=== PATIENT | female | born 1955 | race Caucasian/White ===

== ENCOUNTER → 2017-02-09 | Outpatient (CLI) | payer BC ==
[2017-02-09 07:58] LABS: Basophils # (A) 0.1 k/uL (0-0.2); Basophils % (A) 1 %; CH 29.6; CHCM 32.4; Eosinophils # (A) 0.2 k/uL (0-0.7); Eosinophils % (A) 4 %; HCT 41.4 % (34.0-46.0); HDW 2.44; HGB 13.2 gm/dL (11.4-16.0); Luc # (Auto) 0.17; Luc % (Auto) 4; Lymphocytes # (A) 1.4 k/uL (1.0-4.8); Lymphocytes % (A) 30 %; MCH 29.2 pg (25.0-35.0); MCHC 31.8 g/dL (31.0-37.0); MCV 91.9 fL (80.0-100.0); Mean Platelet Volume 7.5; Monocytes # (A) 0.3 k/uL (0-1.0); Monocytes % (A) 7 %; Neutrophils # (A) 2.4 k/uL (1.3-7.7); Neutrophils % (A) 54 %; RDW 14.4 % (11.5-15.5); WBC 4.5 k/uL (3.8-10.6); WBC (Perox) 4.81
[2017-02-09 08:04] LABS: Appearance,Urine Clear (Clear); Bilirubin,Urine Negative (Negative); Glucose,Urine (UA) Negative (Negative); Ketones,Urine Negative (Negative); Leukocyte Esterase,Urine Moderate (Negative); Mucus,Urine Few /hpf; Nitrite,Urine Negative (Negative); PH, Urine 5.5 (5.0-8.0); Particle Count 3296; Protein,Urine Negative (Negative); RBC,Urine 1 /hpf (0-5); Specific Gravity,Urine 1.011 (1.001-1.035); UA Billing (MACRO vs. MICRO) MICRO; Urobilinogen,Urine <2.0 mg/dL (<2.0); WBC,Urine 7 /hpf (0-5)
[2017-02-09 08:43] LABS: ALT 31 U/L (9-52); AST 29 U/L (14-36); Alkaline Phosphatase 110 U/L (38-126); Anion Gap 13 mmol/L; Blood Urea Nitrogen 14 mg/dL (7-17); Calcium 9.3 mg/dL (8.4-10.2); Carbon Dioxide 25 mmol/L (22-30); Chloride 104 mmol/L (98-107); Cholesterol 131 mg/dL (<200); Creatine Kinase 58 U/L (30-135); Glucose 86 mg/dL (74-99); HDL Cholesterol 50 mg/dL (40-60); Magnesium 2.1 mg/dL (1.6-2.3); Non-African American GFR(MDRD) >60 (>60 ml/min/1.73 sqM); Potassium 4.1 mmol/L (3.5-5.1); Sodium 142 mmol/L (137-145); Total Bilirubin 0.4 mg/dL (0.2-1.3); Total Protein 8.1 g/dL (6.3-8.2); Uric Acid 3.9 mg/dL (3.7-7.4)
== END | disposition home or self-care (01) ==
LOC: LABWHC1 07:12
PROVIDERS: ATTEND Internal Medicine
DX: E78.5 Hyperlipidemia, unspecified (principal); I10 Essential (primary) hypertension; M81.0 Age-related osteoporosis without current pathological fracture
CPT/HCPCS: 36415; 80053; 80061; 81001; 82306; 82550; 83036; 83735; 84439; 84443; 84550; 85025

== ENCOUNTER → 2017-02-13 | Outpatient (CLI) | payer BC ==
--- NOTE | 2017-02-15 06:21 | ECHOF ---
Referral Reason:I49.9 Cardiac arrhythmia, unspecified MEASUREMENTS -------- HEIGHT: 167.6 cm WEIGHT: 55.3 kg BP: 137/81 RVIDd: 2.2 cm (< 3.3) IVSd: 1.3 cm (0.6 - 1.1) LVIDd: 3.7 cm (3.9 - 5.3) LVPWd: 1.1 cm (0.6 - 1.1) IVSs: 1.5 cm LVIDs: 2.7 cm LVPWs: 1.2 cm LAESV Index (A-L): 18.59 ml/m Ao Diam: 3.0 cm (2.0 - 3.7) AV Cusp: 1.1 cm (1.5 - 2.6) LA Diam: 2.1 cm (2.7 - 3.8) MV EXCURSION: 21.996 mm (> 18.000) MV EF SLOPE: 149 mm/s (70 - 150) EPSS: 0.8 cm MV E Anuj: 0.48 m/s MV DecT: 332 ms MV A Anuj: 0.62 m/s MV E/A Ratio: 0.77 RAP: 5.00 mmHg RVSP: 21.76 mmHg FINDINGS -------- Sinus rhythm. This was a technically adequate study. The left ventricular size is normal. There is borderline concentric left ventricular hypertrophy. Overall left ventricular systolic function is normal with, an EF between 55 - 60 %. The right ventricle is normal in size and function. Normal LA size by volume 22+/-6 ml/m2. The right atrium is normal in size. The aortic valve is trileaflet, and appears structurally normal. No aortic stenosis or regurgitation. The mitral valve leaflets are mildly thickened. There is trace mitral regurgitation. Trace tricuspid regurgitation present. Right ventricular systolic pressure is normal at < 35 mmHg. There is no evidence of pulmonary hypertension. The pulmonic valve was not well visualized. The aortic root size is normal. Normal inferior vena cava with normal inspiratory collapse consistent with estimated right atrial pressure of 5 mmHg. The pericardium is normal. There is no pericardial effusion. CONCLUSIONS -------- 1. Sinus rhythm. 2. Right ventricular systolic pressure is normal at < 35 mmHg. 3. There is no evidence of pulmonary hypertension. 4. The pulmonic valve was not well visualized. 5. The aortic root size is normal. 6. This was a technically adequate study. 7. The left ventricular size is normal. 8. Overall left ventricular systolic function is normal with, an EF between 55 - 60 %. 9. Normal LA size by volume 22+/-6 ml/m2. 10. The aortic valve is trileaflet, and appears structurally normal. No aortic stenosis or regurgitation. 11. The mitral valve leaflets are mildly thickened. 12. There is trace mitral regurgitation. 13. Trace tricuspid regurgitation present. [employer] PERSON: Issac Barker RDCS
== END | disposition home or self-care (01) ==
LOC: RADECHMAIN 15:23
PROVIDERS: ATTEND Internal Medicine
DX: I05.9 Rheumatic mitral valve disease, unspecified (principal)
CPT/HCPCS: 93306

== ENCOUNTER → 2017-04-09 | Outpatient (CLI) | payer BC ==
--- NOTE | 2017-04-09 12:01 | BD ---
EXAMINATION TYPE: MG DEXA axial skeleton. DATE OF EXAM: 04/09/2017 COMPARISON: NONE CLINICAL HISTORY: Age related osteoporosis M81.0 Height: 5 FT 5 IN Weight: 120 FRAX RISK QUESTIONS: Alcohol (3 or more units per day): NO Family History (Parent hip fracture): NO Glucocorticoids (More than 3mos): NO (Ex: prednisone, prednisolone, methylprednisolone, dexamethasone, and hydrocortisone). History of Fracture in Adulthood: NO Secondary Osteoporosis: 1. Type 1 Diabetes: NO 2. Hyperthyroidism: NO 3. Menopause before 45: YES 4. Malnutrition: NO 5. Chronic liver disease: NO Rheumatoid Arthritis: NO Current Tobacco Use: NO RISK FACTORS HISTORY OF: Family History of Osteoporosis: YES Active: YES Postmenopausal woman: AGE 43 MEDICATIONS: Additional Medications: LISINOPRIL, ATORVASTIN, BUPROPIN, XANAX Additional History: BREAST CANCER 2013 CHEMO EXAM MEASUREMENTS: Bone mineral densitometry was performed using the [employer] System. Bone mineral density as measured about the Lumbar spine is: ----- L1-L4(G/cm2): 0.608 T Score Values are as follows: ----- L2: -5.3 ----- L3: -4.7 ----- L4: -5.0 ----- L1-L4: -4.8 BASELINE Bone mineral density about the R hip (g/cm2): 0.624 Bone mineral density about the L hip (g/cm2): 0.585 T Score values are as follows: -----R Neck: -3.0 -----L Neck: -3.3 -----R Total: -3.3 -----L Total: -3.4 BASELINE IMPRESSION: Findings compatible with osteoporosis. As such there is high fracture risk. NOTE: T-SCORE=SD OF THE YOUNG ADULT MEAN.
== END | disposition home or self-care (01) ==
LOC: RADBDWWP 07:58
PROVIDERS: ATTEND Internal Medicine
DX: M81.0 Age-related osteoporosis without current pathological fracture (principal)
CPT/HCPCS: 77080

== ENCOUNTER → 2017-09-18 | Outpatient (CLI) | payer BC ==
[2017-09-18 07:51] LABS: Basophils # (A) 0.1 k/uL (0-0.2); Basophils % (A) 1 %; Eosinophils # (A) 0.2 k/uL (0-0.7); Eosinophils % (A) 3 %; HGB 12.4 gm/dL (11.4-16.0); Lymphocytes # (A) 1.6 k/uL (1.0-4.8); Lymphocytes % (A) 32 %; MCH 28.1 pg (25.0-35.0); MCV 90.5 fL (80.0-100.0); Mean Platelet Volume 7.9; Monocytes # (A) 0.4 k/uL (0-1.0); Monocytes % (A) 7 %; Neutrophils # (A) 2.8 k/uL (1.3-7.7); Neutrophils % (A) 55 %; Platelet Count 265 k/uL (150-450); RBC 4.42 m/uL (3.80-5.40); RDW 13.8 % (11.5-15.5); WBC 5.1 k/uL (3.8-10.6)
[2017-09-18 08:23] LABS: ALT 33 U/L (9-52); AST 32 U/L (14-36); Albumin 4.3 g/dL (3.5-5.0); Alkaline Phosphatase 87 U/L (38-126); Anion Gap 13 mmol/L; Blood Urea Nitrogen 18 mg/dL (7-17); Calcium 9.8 mg/dL (8.4-10.2); Carbon Dioxide 27 mmol/L (22-30); Chloride 104 mmol/L (98-107); Cholesterol 146 mg/dL (<200); Creatine Kinase 65 U/L (30-135); Glucose 95 mg/dL (74-99); HDL Cholesterol 44 mg/dL (40-60); LDL Cholesterol,Calculated 89 mg/dL (0-99); Potassium 5.1 mmol/L (3.5-5.1); Sodium 144 mmol/L (137-145); T4, Free (Free Thyroxine) 1.09 ng/dL (0.78-2.19); Total Bilirubin 0.3 mg/dL (0.2-1.3); Total Protein 8.2 g/dL (6.3-8.2); Triglycerides 64 mg/dL (<150)
[2017-09-18 13:55] LABS: Hemoglobin A1C 5.9 % (4.0-6.0)
== END | disposition home or self-care (01) ==
LOC: LABWHC1 07:09
PROVIDERS: ATTEND Internal Medicine
DX: I10 Essential (primary) hypertension (principal); E78.5 Hyperlipidemia, unspecified; M81.0 Age-related osteoporosis without current pathological fracture
CPT/HCPCS: 36415; 80053; 80061; 82306; 82550; 83036; 83735; 84439; 84443; 85025

== ENCOUNTER → 2018-04-23 | Outpatient (CLI) | payer BC ==
--- NOTE | 2018-04-23 11:34 | MM ---
Reason for exam: additional evaluation requested from prior study. Last mammogram was performed 1 year ago. History: Patient is postmenopausal, has history of breast cancer at age 57, and history of other cancer. Family history of breast cancer in maternal aunt at age 60. Malignant right mammotome panel of the right breast, September 19, 2013. Malignant US RT VAD breast biopsy of the right breast, September 19, 2013. Implant in the left breast, 2013. Mastectomy of the right breast, 2013. Chemotherapy, 2013. Physical Findings: Nurse did not find any significant physical abnormalities on exam. MG 3D Diag Mammo Imp W/Cad LT CC, MLO, and XCCL view(s) were taken of the left breast. Prior study comparison: April 09, 2017, left breast MG 3d diag mammo imp w/cad LT. December 23, 2015, left breast MG 3d diag mammo imp w/cad LT. The breast tissue is extremely dense which could obscure a lesion on mammography. No suspicious abnormality. Stable central outer focal asymmetry back to 2016 on 3D views. These results were verbally communicated with the patient and result sheet given to the patient on 04/23/18. ASSESSMENT: Benign, BI-RAD 2 RECOMMENDATION: Follow-up diagnostic mammogram of the left breast in 1 year. (Supplemental screening MRI is recommended in this BRCA positive patient)
== END | disposition home or self-care (01) ==
LOC: RADMAMWWP 09:31
PROVIDERS: ATTEND Internal Medicine Hematology & Oncology
DX: Z08 Encounter for follow-up examination after completed treatment for malignant neoplasm (principal); Z85.3 Personal history of malignant neoplasm of breast
CPT/HCPCS: 77061; 77065

== ENCOUNTER → 2018-10-16 | Outpatient (CLI) | payer BC ==
--- NOTE | 2018-10-16 14:44 | BMR ---
EXAMINATION TYPE: MR breast LT wo/w con DATE OF EXAM: 10/16/2018 COMPARISON: Three-D left breast mammogram April 23, 2018 BI-RADS 2. HISTORY: Right-sided breast cancer treated with mastectomy 2013 with dense breasts on mammogram. Hist ory of left breast implant CONTRAST: Multiplanar, multisequence images of the breasts were acquired utilizing 5.5 mL intravenous Gadavist gadolinium contrast. TECHNIQUE: A series of fat and water weighted images in the long and short axis views of both breasts are obtained in conjunction with dynamic contrast MRI with subtraction technique. Three-dimensional and additional postprocessing imaging is created on independent workstation and reviewed during offi cial interpretation of this study. FINDINGS: Incidental 11 mm T2 hyperintense nonenhancing right lung nodule axial image 26. This correl ates with 2014 CT nodule stable. Nodule is presumed benign. Right breast is surgically absent. There is right breast subpectoral silicone implant in place. Left breast is smaller caliber subpectoral silicone implant. There is extremely dense fibroglandular tissue anterior to the implant. Dynamic postcontrast images show mild background enhancement. A few p rominent vessels in the left breast are present. No pathologic enhancement is seen. T2-weighted image s show no significant cysts. No suspicious fat containing lesions on T1-weighted images. Few benign-a ppearing left axillary lymph nodes. No suspicious greater than 1 cm axillary adenopathy. Chest wall i s intact bilaterally. IMPRESSION: No MRI evidence for invasive malignancy in either breast. BI-RADS 2 benign findings right breast BI-RADS 2 benign findings left breast. Recommendation: Patient is due for left breast mammogram April 23, 2019 to be back on annual sched ule.
== END | disposition home or self-care (01) ==
LOC: RADMRIMAIN 13:05
PROVIDERS: ATTEND Internal Medicine
DX: R92.2 Inconclusive mammogram (principal)
CPT/HCPCS: 77048; C8937; A9585

== ENCOUNTER → 2019-01-31 | Outpatient (CLI) | payer BC ==
[2019-01-31 08:31] LABS: Basophils # (A) 0.1 k/uL (0-0.2); Basophils % (A) 2 %; Eosinophils # (A) 0.2 k/uL (0-0.7); Eosinophils % (A) 4 %; HCT 40.6 % (34.0-46.0); HGB 12.5 gm/dL (11.4-16.0); Lymphocytes # (A) 1.5 k/uL (1.0-4.8); Lymphocytes % (A) 28 %; MCH 28.7 pg (25.0-35.0); MCHC 30.8 g/dL (31.0-37.0); MCV 93.3 fL (80.0-100.0); Mean Platelet Volume 7.2; Monocytes # (A) 0.5 k/uL (0-1.0); Monocytes % (A) 9 %; Neutrophils # (A) 2.9 k/uL (1.3-7.7); Neutrophils % (A) 54 %; Platelet Count 259 k/uL (150-450); RBC 4.35 m/uL (3.80-5.40); RDW 14.3 % (11.5-15.5); WBC 5.4 k/uL (3.8-10.6)
[2019-01-31 08:44] LABS: Appearance,Urine Clear (Clear); Bilirubin,Urine Negative (Negative); Blood,Urine Negative (Negative); Color,Urine Yellow; Glucose,Urine (UA) Negative (Negative); Ketones,Urine Negative (Negative); Leukocyte Esterase,Urine Small (Negative); Mucus,Urine Moderate /hpf; Nitrite,Urine Negative (Negative); PH, Urine 5.5 (5.0-8.0); Protein,Urine Negative (Negative); RBC,Urine 1 /hpf (0-5); Specific Gravity,Urine 1.021 (1.001-1.035); Squamous Epithelial Cell,Urine <1 /hpf (0-4); Urobilinogen,Urine <2.0 mg/dL (<2.0); WBC,Urine 1 /hpf (0-5)
[2019-01-31 11:51] LABS: Albumin 4.3 g/dL (3.80-4.90); Albumin/Globulin Ratio 1.48 (1.60-3.17); Anion Gap 7.7 mmol/L (4.00-12.00); BUN/Creat Ratio 24.44 Ratio (12.00-20.00); Calcium 9.3 mg/dL (8.7-10.3); Carbon Dioxide 24.3 mmol/L (21.6-31.8); Chol/HDL Ratio 3.23; Globulin 2.9 g/dL (1.6-3.3); LDL Cholesterol,Calculated 76.2 mg/dL (0.0-131.0); Magnesium 1.8 mg/dL (1.5-2.4); Potassium 4.6 mmol/L (3.5-5.5); Total Bilirubin 0.2 mg/dL (0.3-1.2); Total Protein 7.2 g/dL (6.2-8.2); Uric Acid 4.9 mg/dL (2.9-7.7); VLDL Calculation 10.8 mg/dL (5.00-40.00)
[2019-01-31 12:00] LABS: T4, Free (Free Thyroxine) 1.1 ng/dL (0.80-1.80)
[2019-01-31 12:51] LABS: Hemoglobin A1C 5.8 % (4.0-6.0)
== END | disposition home or self-care (01) ==
LOC: LABWHC1 07:02
PROVIDERS: ATTEND Internal Medicine
DX: I10 Essential (primary) hypertension (principal); E78.5 Hyperlipidemia, unspecified; M81.0 Age-related osteoporosis without current pathological fracture
CPT/HCPCS: 36415; 80053; 80061; 81001; 82306; 82550; 83036; 83735; 84439; 84443; 84550; 85025

== ENCOUNTER 2019-05-07 18:22 | Emergency (ER) | payer BC ==
[2019-05-07 18:34] VITALS: TEMP 98
[2019-05-07 19:22] LABS: Basophils % (A) 1 %; Eosinophils # (A) 0.2 k/uL (0-0.7); Eosinophils % (A) 2 %; HCT 40.1 % (34.0-46.0); HGB 12.9 gm/dL (11.4-16.0); Lymphocytes # (A) 1.4 k/uL (1.0-4.8); Lymphocytes % (A) 16 %; MCH 28.9 pg (25.0-35.0); MCHC 32.2 g/dL (31.0-37.0); MCV 89.8 fL (80.0-100.0); Mean Platelet Volume 6.6; Monocytes # (A) 0.4 k/uL (0-1.0); Monocytes % (A) 5 %; Neutrophils # (A) 6.5 k/uL (1.3-7.7); Neutrophils % (A) 74 %; Platelet Count 358 k/uL (150-450); RBC 4.47 m/uL (3.80-5.40); WBC 8.8 k/uL (3.8-10.6)
[2019-05-07 19:31] LABS: ALT 33 U/L (9-52); AST 37 U/L (14-36); African American GFR (CKD) >90 (>60 ml/min/1.73 sqM); Albumin 4.5 g/dL (3.5-5.0); Alkaline Phosphatase 114 U/L (38-126); Anion Gap 13 mmol/L; Blood Urea Nitrogen 20 mg/dL (7-17); Calcium 9.3 mg/dL (8.4-10.2); Carbon Dioxide 20 mmol/L (22-30); Chloride 109 mmol/L (98-107); Creatine Kinase 74 U/L (30-135); Glucose 108 mg/dL (74-99); Non-African American GFR(CKD) >90 (>60 ml/min/1.73 sqM); Potassium 4.3 mmol/L (3.5-5.1); Sodium 142 mmol/L (137-145); Total Bilirubin 0.4 mg/dL (0.2-1.3); Total Protein 8.5 g/dL (6.3-8.2)
[2019-05-07 19:36] LABS: Partial Thromboplastin Time 24.9 sec (22.0-30.0); Prothrombin Time 10.5 sec (9.0-12.0)
--- NOTE | 2019-05-07 20:22 | CT ---
EXAMINATION TYPE: CT angio chest DATE OF EXAM: 05/07/2019 COMPARISON: CTA chest March 17, 2014. HISTORY: Elevated d-dimer and back pain. CT DLP: 195.8 mGycm. Automated Exposure Control for Dose Reduction was Utilized. CONTRAST: CTA scan of the thorax is performed with IV Contrast, patient injected with 100 mL of Isovue 370, pul monary embolism protocol. MIP Images are created on CT scanner and reviewed. FINDINGS: LUNGS: The lungs are grossly clear, there is no concerning new parenchymal mass or nodule identified. There is stable right middle lobe low dense nodule with focus of calcification axial image 82 measu ring 13 x 11 mm not significantly changed from 2014 and is thus benign. There is no pleural effusion or pneumothorax seen. The tracheobronchial tree is patent. MEDIASTINUM: There is satisfactory enhancement of the pulmonary artery and its branches, there is no CT evidence for pulmonary embolism. There are no greater than 1 cm hilar or mediastinal lymph nodes. No cardiomegaly or pericardial effusion is seen. OTHER: Slight scoliotic curvature. IMPRESSION: No CT evidence for acute pulmonary embolism. No suspicious acute pulmonary process.
[2019-05-07 20:30] LABS: D-Dimer 1.19 mg/L FEU (<0.60)
[2019-05-07] MEDS ORDERED: KETOROLAC 30 MG/ML 1 ML VIAL IVP STA (20:40)
[2019-05-07] MEDS ORDERED: SODIUM CHLORIDE 0.9% 500 ML 500 ML IV STA (21:00)
--- NOTE | 2019-05-07 21:04 | ED ---
Back Pain HPI - General Chief Complaint: Back Pain/Injury Stated Complaint: Back spasms Time Seen by Provider: 05/07/19 18:30 Source: patient Limitations: no limitations - History of Present Illness Initial Comments: This is a 63-year-old female history of breast cancer and prior history of PE in the left side was sent in by her doctor today because of persistent pain in her back and about the bra strap line. Pain is somewhat sharp and somewhat dull at times get worse with movement or deep breathing he doesn't have a elevated d- dimer on palpation lab work the concern was for PE recurrence. She denies any fevers chills nausea vomiting sweats or other symptoms no trauma. MD Complaint: back pain - Related Data Home Medications Medication Instructions Recorded Confirmed ALPRAZolam [Xanax] 0.25 mg PO BID PRN 03/17/14 02/15/16 buPROPion XL [Wellbutrin XL] 150 mg PO DAILY 03/17/14 02/15/16 Lisinopril [Zestril] 5 mg PO HS 07/01/14 02/17/16 Atorvastatin [Lipitor] 20 mg PO DAILY 02/16/16 02/16/16 Previous Rx's Medication Instructions Recorded Clindamycin HCl [Cleocin] 300 mg PO Q12H #20 cap 02/17/16 Hydrocodone/Acetaminophen [[place] 1 - 2 each PO Q6HR PRN #40 tab 02/17/16 5-325] Ketorolac [Toradol] 10 mg PO Q6HR #20 tab 05/07/19 Allergies Allergy/AdvReac Type Severity Reaction Status Date / Time erythromycin base Allergy Anaphylaxis Verified 05/07/19 18:29 [Erythromycin Base] Review of Systems ROS Statement: Those systems with pertinent positive or pertinent negative responses have been documented in the HPI. ROS Other: All systems not noted in ROS Statement are negative. Past Medical History Past Medical History: Cancer, Deep Vein Thrombosis (DVT), Hyperlipidemia, Hypertension Additional Past Medical History / Comment(s): hx. migraines, hx. blood clot left subclavian & left internal jugular due to mediport, finished chemo 2013, decreased ejection fraction due to chemo but has since improved History of Any Multi-Drug Resistant Organisms: None Reported Past Surgical History: Breast Surgery, Tubal Ligation Additional Past Surgical History / Comment(s): Right mastectomy w/reconstruction, Mediport insertion then removal Past Anesthesia/Blood Transfusion Reactions: No Reported Reaction Past Psychological History: Anxiety Smoking Status: Former smoker Past Alcohol Use History: Occasional Past Drug Use History: None Reported - Past Family History Father Family Medical History: AFIB, Chest Pain / Angina, COPD, Coronary Artery Disease (CAD), Hyperlipidemia, Hypertension Additional Family Medical History / Comment(s): HAD OPEN HEART HX STENT ON BLOOD THINNERS, HIATAL HERNIA, MANY BACK SX, PAST AT AGE 81 Mother Family Medical History: Asthma, Hypertension Mother Brother(s) Family Medical History: Cancer General Exam - General Exam Comments Initial Comments: This is a well-developed well-nourished awake alert oriented 3 female Limitations: no limitations General appearance: alert, in no apparent distress Head exam: Present: atraumatic, normocephalic, normal inspection Eye exam: Present: normal appearance, PERRL, EOMI. Absent: scleral icterus, con junctival injection, periorbital swelling ENT exam: Present: mucous membranes dry Neck exam: Present: normal inspection. Absent: tenderness, meningismus, lymphadenopathy Respiratory exam: Present: normal lung sounds bilaterally, chest wall tenderness (Posterior chest wall on the right more so than the left no step-off or c repitation). Absent: respiratory distress, wheezes, rales, rhonchi, stridor Cardiovascular Exam: Present: regular rate, normal rhythm, normal heart sounds. Absent: systolic murmur, diastolic murmur, rubs, gallop, clicks GI/Abdominal exam: Present: soft, normal bowel sounds. Absent: distended, tenderness, guarding, rebound, rigid Extremities exam: Present: normal inspection, full ROM, normal capillary refill. Absent: tenderness, pedal edema, joint swelling, calf tenderness Back exam: Present: normal inspection Neurological exam: Present: alert, oriented X3, CN II-XII intact Psychiatric exam: Present: normal affect, normal mood Skin exam: Present: warm, dry, intact, normal color. Absent: rash Course Vital Signs 05/07/19 05/07/19 05/07/19 18:30 19:31 20:30 Temperature 98 F Pulse Rate 104 H 94 Respiratory 18 21 Rate Blood Pressure 139/88 133/88 O2 Sat by Pulse 97 99 96 Oximetry 05/07/19 21:00 Temperature Pulse Rate 99 Respiratory 20 Rate Blood Pressure 144/93 O2 Sat by Pulse 95 Oximetry Medical Decision Making - Medical Decision Making I did reevaluate patient several occasions she was getting improvement in her pain with IV Toradol. After long discussions she will be discharged she will get a prescription for Toradol she is keep her follow-up with her doctor return when necessary discuss this with her and her daughter. - Lab Data Result diagrams: 05/07/19 19:15 05/07/19 19:15 Lab Results 05/07/19 05/07/19 05/07/19 Range/Units 19:15 19:15 19:15 WBC 8.8 (3.8-10.6) k/uL RBC 4.47 (3.80-5.40) m/uL Hgb 12.9 (11.4-16.0) gm/dL Hct 40.1 (34.0-46.0) % MCV 89.8 (80.0-100.0) fL MCH 28.9 (25.0-35.0) pg MCHC 32.2 (31.0-37.0) g/dL RDW 14.0 (11.5-15.5) % Plt Count 358 (150-450) k/uL Neutrophils % 74 % Lymphocytes % 16 % Monocytes % 5 % Eosinophils % 2 % Basophils % 1 % Neutrophils # 6.5 (1.3-7.7) k/uL Lymphocytes # 1.4 (1.0-4.8) k/uL Monocytes # 0.4 (0-1.0) k/uL Eosinophils # 0.2 (0-0.7) k/uL Basophils # 0.0 (0-0.2) k/uL PT 10.5 (9.0-12.0) sec INR 1.0 (<1.2) APTT 24.9 (22.0-30.0) sec D-Dimer 1.19 H (<0.60) mg/L FEU Sodium 142 (137-145) mmol/L Potassium 4.3 (3.5-5.1) mmol/L Chloride 109 H (98-107) mmol/L Carbon Dioxide 20 L (22-30) mmol/L Anion Gap 13 mmol/L BUN 20 H (7-17) mg/dL Creatinine 0.64 (0.52-1.04) mg/dL Est GFR (CKD-EPI)AfAm >90 (>60 ml/min/1.73 sqM) Est GFR (CKD-EPI)NonAf >90 (>60 ml/min/1.73 sqM) Glucose 108 H (74-99) mg/dL Calcium 9.3 (8.4-10.2) mg/dL Magnesium 2.0 (1.6-2.3) mg/dL Total Bilirubin 0.4 (0.2-1.3) mg/dL AST 37 H (14-36) U/L ALT 33 (9-52) U/L Alkaline Phosphatase 114 (38-126) U/L Creatine Kinase 74 (30-135) U/L Total Protein 8.5 H (6.3-8.2) g/dL Albumin 4.5 (3.5-5.0) g/dL - EKG Data -: EKG Interpreted by Me EKG Comments: EKG shows normal sinus rhythm of 95 appear interval 150 to QRS 82 QT since QTC 344/[address]-T wave changes - Radiology Data Radiology results: report reviewed (I did review the imaging and report no evidence of PE or DVT.), image reviewed Disposition Clinical Impression: Elevated d-dimer, Dehydration, History of breast cancer Disposition: HOME SELF-CARE Condition: Good Instructions (If sedation given, give patient instructions): Back Pain (ED) Prescriptions: Ketorolac [Toradol] 10 mg PO Q6HR #20 tab Is patient prescribed a controlled substance at d/c from ED?: No Referrals: Oleg Galindo MD [Primary Care Provider] - 1-2 days
--- NOTE | 2019-05-07 22:12 | US ---
EXAMINATION TYPE: US venous doppler duplex LE DATE OF EXAM: 05/07/2019 9:59 PM COMPARISON: US Left Upper Extremity 2014 CLINICAL HISTORY: Elevated d-dimer, chest pain. Elevated D-Dimer. Chest pain. Patient takes baby aspi rin. Hx of DVT. SIDE PERFORMED: Bilateral TECHNIQUE: The lower extremity deep venous system is examined utilizing real time linear array sonog brooke with graded compression, doppler sonography and color-flow sonography. VESSELS IMAGED: External Iliac Vein (EIV) Common Femoral Vein Deep Femoral Vein Greater Saphenous Vein * Femoral Vein Popliteal Vein Small Saphenous Vein * Proximal Calf Veins (* superficial vessels) Right Leg: No evidence of DVT at this time in veins imaged from prox calf veins to EIV. Left Leg: No evidence of DVT at this time in veins imaged from prox calf veins to EIV. IMPRESSION: No evidence of deep venous thrombosis in both legs.
[2019-05-07 22:47] VITALS: BP 131/92; PULSE 97; RESP 16
== END 2019-05-07 22:46 | disposition home or self-care (01) ==
LOC: EC 18:22
DX: M54.9 Dorsalgia, unspecified (principal); E86.0 Dehydration; R79.89 Other specified abnormal findings of blood chemistry; F41.9 Anxiety disorder, unspecified; I10 Essential (primary) hypertension; E78.5 Hyperlipidemia, unspecified; Z79.899 Other long term (current) drug therapy; Z88.1 Allergy status to other antibiotic agents; Z85.3 Personal history of malignant neoplasm of breast; Z87.891 Personal history of nicotine dependence; Z86.711 Personal history of pulmonary embolism; Z86.718 Personal history of other venous thrombosis and embolism; Z92.21 Personal history of antineoplastic chemotherapy
CPT/HCPCS: 36415; 93005; 85379; 80053; 82550; 83735; 85025; 85610; 85730; 93970; 71275; 99284; 96374; 96361; J1885; Q9967

== ENCOUNTER → 2019-06-13 | Outpatient (CLI) | payer BC ==
--- NOTE | 2019-06-13 08:53 | BD ---
EXAMINATION TYPE: Axial Bone Density DATE OF EXAM: 06/13/2019 COMPARISON: DEXA bone scan April 09, 2017 CLINICAL HISTORY: Postmenopausal female Height: 66 Weight: 118.9 FRAX RISK QUESTIONS: Alcohol (3 or more units per day): no Family History (Parent hip fracture): no Glucocorticoids (More than 3mos): no (Ex: prednisone, prednisolone, methylprednisolone, dexamethasone, and hydrocortisone). History of Fracture in Adulthood: no Secondary Osteoporosis: 1. Type 1 Diabetes: no 2. Hyperthyroidism: no 3. Menopause before 45: yes 4. Malnutrition: no 5. Chronic liver disease: no Rheumatoid Arthritis: no Current Tobacco Use: no RISK FACTORS HISTORY OF: Family History of Osteoporosis: yes Active: yes Diet low in dairy products/other sources of calcium: yes Postmenopausal woman: age 43 MEDICATIONS: buspirone, atorvastatin, alprazolam, lisinopril Additional History: EXAM MEASUREMENTS: Bone mineral densitometry was performed using the [employer] System. Bone mineral density as measured about the Lumbar spine is: ----- L1-L4(G/cm2): 0.633 T Score Values are as follows: ----- L2: -4.9 ----- L3: -4.4 ----- L4: -5.0 ----- L1-L4: -4.6 Bone mineral density has: increased 4.5 % since study of: 04.09.2017 Bone mineral density about the R hip (g/cm2): 0.633 Bone mineral density about the L hip (g/cm2): 0.632 T Score values are as follows: -----R Neck: -2.7 -----L Neck: -2.9 -----R Total: -3.0 -----L Total: -3.2 Bone mineral density has: increased 4.6 % since study of: 04.09.2017 IMPRESSION: Osteoporosis (T Score less than -2.5) remains present though overall bone density slightly improved from prior. There remains increased fracture risk and therapy is usually indicated based on age. Re-Screen 1-2 years. NOTE: T-SCORE=SD OF THE YOUNG ADULT MEAN.
--- NOTE | 2019-06-13 09:42 | MM ---
Reason for exam: additional evaluation requested from prior study. Last mammogram was performed 1 year and 2 months ago. History: Patient is postmenopausal, has history of breast cancer at age 57, and history of other cancer. Family history of breast cancer in maternal aunt at age 60. Malignant right mammotome panel of the right breast, September 19, 2013. Malignant US RT VAD breast biopsy of the right breast, September 19, 2013. Implant in the left breast, 2013. Mastectomy of the right breast, 2013. Chemotherapy, 2013. Physical Findings: Nurse did not find any significant physical abnormalities on exam. MG Diag Mamm Implant LT w CAD CC, MLO, and ID view(s) were taken of the left breast. Prior study comparison: April 23, 2018, left breast MG 3d diag mammo imp w/cad LT. April 09, 2017, left breast MG 3d diag mammo imp w/cad LT. The breast tissue is heterogeneously dense. This may lower the sensitivity of mammography. There are benign appearing round calcifications in the left breast. Asymmetric breast tissue left axilla better visualization current study. There is no discrete abnormality. Subpectoral left implant. These results were verbally communicated with the patient and result sheet given to the patient on 06/13/19. ASSESSMENT: Benign, BI-RAD 2 RECOMMENDATION: Follow-up diagnostic mammogram of the left breast in 1 year.
== END | disposition home or self-care (01) ==
LOC: RADMAMWWP 06:56
PROVIDERS: ATTEND Internal Medicine
DX: C50.911 Malignant neoplasm of unspecified site of right female breast (principal); M81.0 Age-related osteoporosis without current pathological fracture
CPT/HCPCS: 77065; 77080

== ENCOUNTER → 2019-12-08 | Outpatient (CLI) | payer BC ==
--- NOTE | 2019-12-08 16:31 | XR ---
Left hand HISTORY: Trauma and pain 3 views left hand There is a distal left fifth metacarpal fracture with slight volar angulation, minimal displacement. No dislocation. Bone mineralization is reduced. IMPRESSION: Distal fifth metacarpal fracture left hand
== END | disposition home or self-care (01) ==
LOC: RAD 16:03
PROVIDERS: ATTEND Internal Medicine
DX: S62.307A Unspecified fracture of fifth metacarpal bone, left hand, initial encounter for closed fracture (principal)

== ENCOUNTER → 2020-09-21 | Outpatient (CLI) | payer BC ==
[2020-09-21 09:00] LABS: Appearance,Urine Clear (Clear); Bilirubin,Urine Negative (Negative); Blood,Urine Negative (Negative); Color,Urine Light Yellow; Glucose,Urine (UA) Negative (Negative); Ketones,Urine Negative (Negative); Leukocyte Esterase,Urine Small (Negative); Mucus,Urine Rare /hpf; Nitrite,Urine Negative (Negative); PH, Urine 5.5 (5.0-8.0); Protein,Urine Negative (Negative); RBC,Urine 1 /hpf (0-5); Specific Gravity,Urine 1.012 (1.001-1.035); Urobilinogen,Urine <2.0 mg/dL (<2.0); WBC,Urine 2 /hpf (0-5)
[2020-09-21 14:44] LABS: Basophils # (A) 0.06 X 10*3/uL (0.00-0.10); Basophils % (A) 1.1 %; Eosinophils % (A) 1.8 %; HCT 39.5 % (37.2-46.3); HGB 12.1 g/dL (12.0-15.0); Lymphocytes # (A) 1.66 X 10*3/uL (0.90-5.00); Lymphocytes % (A) 29.6 %; MCH 27.7 pg (27.0-32.0); MCHC 30.6 g/dL (32.0-37.0); MCV 90.4 fL (80.0-97.0); Mean Platelet Volume 11.5 fL (9.5-12.2); Monocytes # (A) 0.56 X 10*3/uL (0.20-1.00); Neutrophils # (A) 3.21 X 10*3/uL (1.80-7.70); Neutrophils % (A) 57.3 %; Platelet Count 242 X 10*3/uL (140-440); RBC 4.37 X 10*6/uL (4.10-5.20); RDW 15.3 % (11.5-14.5)
[2020-09-21 20:32] LABS: Hemoglobin A1C 5.8 % (4.0-6.0)
[2020-09-22 04:17] LABS: African American GFR (CKD) 107.6 (60.0-200.0); Albumin 4.2 g/dL (3.80-4.90); Albumin/Globulin Ratio 1.31 (1.60-3.17); Anion Gap 5.8 mmol/L (4.00-12.00); BUN/Creat Ratio 24.29 Ratio (12.00-20.00); Calcium 9.5 mg/dL (8.7-10.3); Carbon Dioxide 27.2 mmol/L (21.6-31.8); Chol/HDL Ratio 4.17; Globulin 3.2 g/dL (1.6-3.3); Non-African American GFR(CKD) 92.9 (60.0-200.0); Potassium 4.8 mmol/L (3.5-5.5); Total Bilirubin 0.2 mg/dL (0.3-1.2); Total Protein 7.4 g/dL (6.2-8.2)
[2020-09-22 04:18] LABS: Cancer Antigen 153 1.2 U/mL (0.0-32.3)
== END | disposition home or self-care (01) ==
LOC: LABWHC1 07:39
PROVIDERS: ATTEND Internal Medicine
DX: Z00.00 Encounter for general adult medical examination without abnormal findings (principal); C50.911 Malignant neoplasm of unspecified site of right female breast; F41.9 Anxiety disorder, unspecified; I10 Essential (primary) hypertension; M81.0 Age-related osteoporosis without current pathological fracture
CPT/HCPCS: 36415; 80053; 80061; 81001; 82306; 82378; 82523; 83036; 84443; 85025; 86300

== ENCOUNTER → 2020-10-12 | Outpatient (CLI) | payer BC ==
--- NOTE | 2020-10-12 09:58 | MM ---
Reason for exam: additional evaluation requested from prior study. Last mammogram was performed 1 year and 4 months ago. History: Patient is postmenopausal, has history of breast cancer at age 57, and history of other cancer. Family history of breast cancer in maternal aunt at age 60. Malignant right mammotome panel of the right breast, September 19, 2013. Malignant US RT VAD breast biopsy of the right breast, September 19, 2013. Implant in the left breast, 2013. Mastectomy of the right breast, 2013. Chemotherapy, 2013. Physical Findings: Nurse did not find any significant physical abnormalities on exam. MG 3D Diag Mammo Imp W/Cad LT CC, MLO, and ID view(s) were taken of the left breast. Prior study comparison: June 13, 2019, left breast MG diag mamm implant LT w CAD. April 23, 2018, left breast MG 3d diag mammo imp w/cad LT. The breast tissue is extremely dense which could obscure a lesion on mammography. Benign appearing calcifications in the left breast. No significant new findings when compared with previous films. These results were verbally communicated with the patient and result sheet given to the patient on 10/12/20. ASSESSMENT: Benign, BI-RAD 2 RECOMMENDATION: Follow-up diagnostic mammogram of the left breast in 1 year.
== END | disposition home or self-care (01) ==
LOC: RADMAMWWP 08:17
PROVIDERS: ATTEND Internal Medicine
DX: C50.911 Malignant neoplasm of unspecified site of right female breast (principal); R92.1 Mammographic calcification found on diagnostic imaging of breast; Z78.0 Asymptomatic menopausal state; Z80.3 Family history of malignant neoplasm of breast
CPT/HCPCS: 77061; 77065

== ENCOUNTER → 2020-10-19 | Outpatient (CLI) | payer BC ==
--- NOTE | 2020-10-20 06:40 | BD ---
EXAMINATION TYPE: Axial Bone Density DATE OF EXAM: 10/19/2020 COMPARISON: Prior DEXA bone scan June 13, 2019 CLINICAL HISTORY: Postmenopausal female with osteoporosis. Height: 64 Weight: 107.5 FRAX RISK QUESTIONS: Alcohol (3 or more units per day): no Family History (Parent hip fracture): no Glucocorticoids (More than 3mos): no (Ex: prednisone, prednisolone, methylprednisolone, dexamethasone, and hydrocortisone). History of Fracture in Adulthood: yes Secondary Osteoporosis: 1. Type 1 Diabetes: no 2. Hyperthyroidism: no 3. Menopause before 45: yes 4. Malnutrition: no 5. Chronic liver disease: no Rheumatoid Arthritis: no Current Tobacco Use: no RISK FACTORS HISTORY OF: Surgery to Spine/Hip(right/left)/Wrist (right/left): no Family History of Osteoporosis: yes Active: yes Diet low in dairy products/other sources of calcium: yes Postmenopausal woman: age 43 Lost more than 2 inches in height since high school: just two inches MEDICATIONS: Osteoporosis Medications: took prolia How Long: stopped taking 1 year ago Additional Medications: scanned into pacs Additional History: EXAM MEASUREMENTS: Bone mineral densitometry was performed using the [employer] System. Bone mineral density as measured about the Lumbar spine is: ----- L1-L4(G/cm2): 0.559 T Score Values are as follows: ----- L2: -5.4 ----- L3: -5.1 ----- L4: -5.7 ----- L1-L4: -5.2 Bone mineral density has: decreased -12.0 % since study of: 06.13.2019 Bone mineral density about the R hip (g/cm2): 0.623 Bone mineral density about the L hip (g/cm2): 0.589 T Score values are as follows: -----R Neck: -3.0 -----L Neck: -3.2 -----R Total: -3.4 -----L Total: -3.6 Bone mineral density has: decreased -7.7 % since study of: IMPRESSION: Osteoporosis (T Score less than -2.5) is redemonstrated. Bone density continues to decrease or is dim inished. There remains increased fracture risk and therapy is usually indicated based on age. Re-Screen 1-2 years. NOTE: T-SCORE=SD OF THE YOUNG ADULT MEAN.
== END | disposition home or self-care (01) ==
LOC: RADBDWWP 07:10
PROVIDERS: ATTEND Internal Medicine
DX: Z13.820 Encounter for screening for osteoporosis (principal); M81.0 Age-related osteoporosis without current pathological fracture; Z78.0 Asymptomatic menopausal state
CPT/HCPCS: 77080

== ENCOUNTER → 2021-01-18 | Outpatient (CLI) | payer BC ==
--- NOTE | 2021-01-18 09:31 | CT ---
EXAMINATION TYPE: CT abdomen w con DATE OF EXAM: 01/18/2021 COMPARISON: NONE HISTORY: 65-year-old female K86.89, disease of the pancreas, Other specified diseases of pancreas TECHNIQUE: Contiguous axial scanning of the abdomen following administration of 100 ml Isovue 370 IV contrast. Arterial and portal venous phase imaging is performed. Coronal/sagittal reconstructions pe rformed. CT DLP: 252.1 mGycm Automated exposure control for dose reduction was used. FINDINGS: Partially visualized bilateral breast implants. Heart normal size without pericardial effusion. Some nodular atelectasis is suggested in the subpleural region posterior right base. No pleural effus ion. Suspected tiny hiatal hernia. Graft liver normal size at 15.2 cm. No focal lesion is seen. Portal jayla ous system is patent. Bile duct mildly prominent at 7 mm but with normal distal tapering. No enlargem ent of the intrahepatic biliary system. No abnormal gallbladder distention. Adrenal glands, kidneys, and spleen within normal limits. No specific abnormality of the pancreas. There is homogeneous enhancement, normal morphology, and no mass or surrounding inflammation. The main pancreatic duct is prominent at 2.5 mm but not abnormally dilated. There appears to be full thickening of left abdominal jejunal loops. Made in left mesenteric lymphadenopathy measuring up to 1.0 cm. Short segment annular thickening and narrowing on the right side of the colon, refer to axial images 85 series 3 and image 59 series 5. Moderate stool burden. No dilated small bowel, free fluid, or free air. The pelvis is not imaged. Bones: Moderate degenerative disc disease L5-S1. IMPRESSION: 1. THE MAIN PANCREATIC DUCT IS PROMINENT AT 2.5 MM BUT NOT ABNORMALLY DILATED. OTHERWISE, NO SPECIFIC ABNORMALITY IS APPARENT OF THE PANCREAS. 2. BORDERLINE DILATED BILE DUCT AT 7 MM LIKELY CHRONIC FOR PATIENT'S AGE. CORRELATE FOR NORMAL ALKALI NE PHOSPHATASE AND BILIRUBIN LEVELS. 3. BORDERLINE AND MILDLY ENLARGED MESENTERIC LYMPHADENOPATHY MEASURING UP TO 1.0 CM. FINDINGS MAY BE REACTIVE/POST INFLAMMATORY. GIVEN JEJUNAL WALL THICKENING IN THE LEFT SIDE OF THE ABDOMEN, CONSIDER E NTERITIS AND MESENTERIC ADENITIS. 3 MONTH FOLLOW-UP CT TO ENSURE STABILITY/RESOLUTION AND EXCLUDE MOR E AGGRESSIVE ETIOLOGIES SUCH LYMPHOMA. RECOMMEND CLINICAL ASSESSMENT FOR ANY PALPABLE LYMPHADENOPA THY ELSEWHERE IN THE BODY. 4. SHORT SEGMENT ANNULAR THICKENING AND NARROWING ALONG THE RIGHT SIDE OF THE COLON PROBABLY FOCAL PE RISTALSIS. DIRECT VISUALIZATION TO EXCLUDE NEOPLASM IF ROUTINE SCREENING COLONOSCOPY IS NOT BEING PER FORMED.
== END | disposition home or self-care (01) ==
LOC: RADCTMAIN 08:13
PROVIDERS: ATTEND Internal Medicine
DX: K86.2 Cyst of pancreas (principal)
CPT/HCPCS: 74160; Q9967

== ENCOUNTER → 2021-03-15 | Outpatient (CLI) | payer BC ==
[2021-03-15 12:18] LABS: Appearance,Urine Clear (Clear); Bilirubin,Urine Negative (Negative); Blood,Urine Negative (Negative); Color,Urine Light Yellow; Glucose,Urine (UA) Negative (Negative); Ketones,Urine Negative (Negative); Leukocyte Esterase,Urine Negative (Negative); Nitrite,Urine Negative (Negative); Protein,Urine Negative (Negative); Specific Gravity,Urine 1.009 (1.001-1.035); Urobilinogen,Urine <2.0 mg/dL (<2.0)
[2021-03-15 20:26] LABS: Basophils # (A) 0.07 X 10*3/uL (0.00-0.10); Basophils % (A) 1.5 %; Eosinophils % (A) 2.1 %; HGB 12.1 g/dL (12.0-15.0); Lymphocytes # (A) 1.78 X 10*3/uL (0.90-5.00); MCH 27.9 pg (27.0-32.0); MCHC 30.3 g/dL (32.0-37.0); MCV 92.2 fL (80.0-97.0); Monocytes % (A) 12.8 %; Neutrophils # (A) 2.12 X 10*3/uL (1.80-7.70); Neutrophils % (A) 45.4 %; Platelet Count 304 X 10*3/uL (140-440); RBC 4.34 X 10*6/uL (4.10-5.20); RDW 15.6 % (11.5-14.5); WBC 4.68 X 10*3/uL (4.50-10.00)
[2021-03-16 09:00] LABS: Gliadin AB IgA, Deaminated POSITIVE (NEGATIVE); Gliadin AB IgA, Unit >250.0 U/mL
[2021-03-16 09:03] LABS: % Iron Saturation 13.22 (12.00-45.00); African American GFR (CKD) 108.6 (60.0-200.0); Albumin 4.2 g/dL (3.8-4.9); Albumin/Globulin Ratio 1.24 (1.60-3.17); Anion Gap 16.7 mmol/L (4.00-12.00); BUN/Creat Ratio 20.12 Ratio (12.00-20.00); Blood Urea Nitrogen 13.4 mg/dL (9.0-27.0); Calcium 9.3 mg/dL (8.7-10.3); Chol/HDL Ratio 3.64 Ratio; Ferritin 27.1 ng/mL (10.0-291.0); Globulin 3.4 g/dL (1.6-3.3); HDL Cholesterol 47.2 mg/dL (40.00-60.00); LDL Cholesterol,Calculated 110.6 mg/dL (0.0-131.0); Magnesium 2.1 mg/dL (1.5-2.4); Non-African American GFR(CKD) 93.7 (60.0-200.0); Potassium 4.7 mmol/L (3.5-5.5); T4, Free (Free Thyroxine) 1.13 ng/dL (0.800-1.800); Total Bilirubin 0.2 mg/dL (0.30-1.20); Total Protein 7.5 g/dL (6.2-8.2); Triglycerides 71.2 mg/dL (0.00-149.00); VLDL Calculation 14.24 mg/dL (5.00-40.00)
== END | disposition home or self-care (01) ==
LOC: LABWHC1 10:06
PROVIDERS: ATTEND Internal Medicine
DX: I10 Essential (primary) hypertension (principal); E78.2 Mixed hyperlipidemia; F41.9 Anxiety disorder, unspecified; K90.0 Celiac disease; M81.0 Age-related osteoporosis without current pathological fracture
CPT/HCPCS: 36415; 80053; 80061; 81003; 82523; 82728; 83036; 83516; 83540; 83550; 83735; 84439; 84443; 85025

== ENCOUNTER → 2021-11-01 | Outpatient (CLI) | payer BC ==
--- NOTE | 2021-11-01 15:20 | MM ---
Reason for Exam: Additional evaluation requested from prior study. Last screening mammogram was performed 12 month(s) ago. Patient History: Menarche at age 18. First Full-Term at age 27. Postmenopausal. Other cancer. Breast cancer, age 57. 2013, Mastectomy on the Right side. 09/19/2013, Malignant Core Biopsy on the right side. 09/19/2013, Malignant Core Biopsy on the right side. 2013, Chemotherapy. 2013, Implant on the left side. Maternal aunt had breast cancer, age 60. Film Views: 3D and 2D Synthesized Left CC views were taken. 3D and 2D Synthesized Left MLO views were taken. 3D and 2D Synthesized Left CCID views were taken. 3D and 2D Synthesized Left MLOID views were taken. Prior Study Comparison: 04/23/2018 Left Diagnostic Mammogram, [facility]. 06/13/2019 Left Diagnostic Mammogram, [facility]. 10/12/2020 Left Diagnostic Mammogram, [facility]. Tissue Density: Left: The breast tissue is extremely dense which could obscure a lesion on mammography. Findings: Analyzed By CAD. Mammogram Retropectoral silicone implant is demonstrated. 3-D images suggest subtle underlying nodularity that could represent prominent nodular fibroglandular tissue. Further ultrasound evaluation recommended. No suspicious calcifications or other discrete abnormality is seen. Technique: Method: Whole Breast Handheld. Findings: The whole breast of the left breast, the axilla of the left breast and the retroareolar of the left breast were scanned. No significant changes when compared with prior studies. Whole left breast ultrasound was performed including scanning of the subareolar region and axilla. There is no solid or cystic lesion. No axillary lymphadenopathy. Underlying silicone implant is demonstrated. Overall Assessment: Benign, BI-RAD 2 Assessment: MG 3D diag mammo imp w/cad LT - Left: Incomplete: need additional imaging evaluation, BI-RAD 0. US breast LT - Left: Benign, BI-RAD 2. Management: Screening Mammogram of the left breast in 1 year. 1. A clinical breast exam by your physician is recommended on an annual basis and results should be correlated with mammographic findings. 2. Patient should continue monthly self breast exams. These results should not preclude additional follow-up of suspicious palpable abnormalities. Results were given to the patient verbally at the time of exam. Electronically signed and approved by: Deon Maurer M.D. Radiologist
== END | disposition home or self-care (01) ==
LOC: RADMAMWWP 13:45
PROVIDERS: ATTEND Internal Medicine
DX: C50.911 Malignant neoplasm of unspecified site of right female breast (principal); R92.8 Other abnormal and inconclusive findings on diagnostic imaging of breast; Z78.0 Asymptomatic menopausal state; Z80.3 Family history of malignant neoplasm of breast
CPT/HCPCS: 77061; 77065

== ENCOUNTER → 2021-11-16 | Outpatient (CLI) | payer BC ==
[2021-11-16 11:05] LABS: Carcinoembryonic Antigen 0.9 ng/mL (0.0-4.9)
[2021-11-16 11:11] LABS: Basophils # (A) 0.08 X 10*3/uL (0.00-0.10); Basophils % (A) 1.6 %; Eosinophils # (A) 0.22 X 10*3/uL (0.04-0.35); Eosinophils % (A) 4.5 %; HCT 40.5 % (37.2-46.3); HGB 12.5 g/dL (12.0-15.0); Immature Grans, Automated 0.2 %; Lymphocytes # (A) 1.54 X 10*3/uL (0.90-5.00); Lymphocytes % (A) 31.7 %; MCH 28.5 pg (27.0-32.0); MCHC 30.9 g/dL (32.0-37.0); MCV 92.3 fL (80.0-97.0); Mean Platelet Volume 10.4 fL (9.5-12.2); Monocytes # (A) 0.51 X 10*3/uL (0.20-1.00); Monocytes % (A) 10.5 %; NRBC Per 100 WBC 0 /100 WBCS (0.0-0.0); Neutrophils % (A) 51.5 %; Platelet Count 277 X 10*3/uL (140-440); RBC 4.39 X 10*6/uL (4.10-5.20); RDW 13.4 % (11.5-14.5); WBC 4.86 X 10*3/uL (4.50-10.00)
[2021-11-16 11:49] LABS: ALT 10 U/L (8-44); AST 20 U/L (13-35); African American GFR (CKD) 106.9 (60.0-200.0); Albumin 4.3 g/dL (3.8-4.9); Albumin/Globulin Ratio 1.34 (1.60-3.17); Alkaline Phosphatase 84 U/L (41-126); BUN/Creat Ratio 24.14 Ratio (12.00-20.00); Blood Urea Nitrogen 16.9 mg/dL (9.0-27.0); Calcium 9.1 mg/dL (8.7-10.3); Carbon Dioxide 21.5 mmol/L (20.0-27.5); Chloride 103 mmol/L (96-109); Globulin 3.2 g/dL (1.6-3.3); Glucose 102 mg/dL (70-110); Magnesium 2.1 mg/dL (1.5-2.4); Non-African American GFR(CKD) 92.2 (60.0-200.0); Potassium 4.1 mmol/L (3.5-5.5); Sodium 144 mmol/L (135-145); Total Protein 7.5 g/dL (6.2-8.2)
[2021-11-16 11:50] LABS: % Iron Saturation 35.25 (12.00-45.00); Chol/HDL Ratio 4.79 Ratio; Iron 113 ug/dL (50-170); LDL Cholesterol,Calculated 150.4 mg/dL (0.0-131.0); Total Iron Binding Capacity 321 ug/dL (228-460); VLDL Calculation 14.96 mg/dL (5.00-40.00)
[2021-11-16 11:53] LABS: Amylase 52 U/L (23-121); Lipase 35 U/L (14-63)
[2021-11-16 18:41] LABS: Gliadin AB IgA, Deaminated POSITIVE (NEGATIVE); Gliadin AB IgA, Unit 74.7 U/mL
[2021-11-16 18:48] LABS: Gliadin AB IgG, Deaminated POSITIVE (NEGATIVE); Gliadin AB IgG, Unit 162.3 U/mL
== END | disposition home or self-care (01) ==
LOC: LABWHC1 07:01
PROVIDERS: ATTEND Internal Medicine
DX: C50.911 Malignant neoplasm of unspecified site of right female breast (principal); I10 Essential (primary) hypertension; E78.2 Mixed hyperlipidemia; K90.0 Celiac disease; K86.89 Other specified diseases of pancreas
CPT/HCPCS: 36415; 80053; 80061; 82150; 82378; 82728; 83036; 83516; 83540; 83550; 83690; 83735; 84439; 84443; 85025

== ENCOUNTER 2021-12-13 11:09 | Emergency (ER) | payer BC ==
[2021-12-13 11:43] VITALS: TEMP 97.6
[2021-12-13 12:34] LABS: Appearance,Urine Turbid (Clear); Bilirubin,Urine Negative (Negative); Blood,Urine Large (Negative); Color,Urine Dark Red; Glucose,Urine (UA) Negative (Negative); Ketones,Urine Negative (Negative); Leukocyte Esterase,Urine Large (Negative); Mucus,Urine Few /hpf; Nitrite,Urine Negative (Negative); Protein,Urine 3+ (Negative); RBC,Urine >182 /hpf (0-5); Squamous Epithelial Cell,Urine 5 /hpf (0-4); Urobilinogen,Urine <2.0 mg/dL (<2.0); WBC,Urine >182 /hpf (0-5)
[2021-12-13 12:36] LABS: Specific Gravity,Urine 1.021 (1.001-1.035)
--- NOTE | 2021-12-13 12:40 | ED ---
General Adult HPI - General Chief complaint: Urogenital Stated complaint: female Time Seen by Provider: 12/13/21 12:00 Source: patient, RN notes reviewed, old records reviewed Mode of arrival: ambulatory Limitations: no limitations - History of Present Illness Initial comments: This is a 66-year-old female presents emergency Department complaining of urinary frequency dysuria and hematuria. Patient states she went to see her primary medical care doctor but because her heart rate was fast and she was having blood in the primary medical care doctor was concerned about a kidney stone sent to the emergency department. Patient states currently she is not having any pain in the back or suprapubically and states she feels much better now that she has urinated. Patient states when she urinated there was some dysuria. Patient states he was also blood again. Patient denies any fever chills. - Related Data Home Medications Medication Instructions Recorded Confirmed ALPRAZolam [Xanax] 0.25 mg PO BID PRN 03/17/14 02/15/16 buPROPion XL [Wellbutrin XL] 150 mg PO DAILY 03/17/14 02/15/16 lisinopriL [Zestril] 5 mg PO HS 07/01/14 02/17/16 Atorvastatin [Lipitor] 20 mg PO DAILY 02/16/16 02/16/16 Previous Rx's Medication Instructions Recorded Hydrocodone/Acetaminophen [[place] 1 - 2 each PO Q6HR PRN #40 tab 02/17/16 5-325] clindamycin HCL [Cleocin] 300 mg PO Q12H #20 cap 02/17/16 Ketorolac [Toradol] 10 mg PO Q6HR #20 tab 05/07/19 Sulfamethox-Tmp 800-160Mg [Bactrim 1 each PO Q12HR #14 tab 12/13/21 DS 800-160 mg] Allergies Allergy/AdvReac Type Severity Reaction Status Date / Time erythromycin base Allergy Anaphylaxis Verified 12/13/21 11:43 [Erythromycin Base] Review of Systems ROS Statement: Those systems with pertinent positive or pertinent negative responses have been documented in the HPI. ROS Other: All systems not noted in ROS Statement are negative. Past Medical History Past Medical History: Cancer, Deep Vein Thrombosis (DVT), Hyperlipidemia, Hypertension Additional Past Medical History / Comment(s): hx. migraines, hx. blood clot left subclavian & left internal jugular due to mediport, finished chemo 2013, decreased ejection fraction due to chemo but has since improved History of Any Multi-Drug Resistant Organisms: None Reported Past Surgical History: Breast Surgery, Tubal Ligation Additional Past Surgical History / Comment(s): Right mastectomy w/reconstruction, Mediport insertion then removal Past Anesthesia/Blood Transfusion Reactions: No Reported Reaction Past Psychological History: Anxiety Smoking Status: Former smoker Past Alcohol Use History: Occasional Past Drug Use History: None Reported - Past Family History Father Family Medical History: AFIB, Chest Pain / Angina, COPD, Coronary Artery Disease (CAD), Hyperlipidemia, Hypertension Additional Family Medical History / Comment(s): HAD OPEN HEART HX STENT ON BLOOD THINNERS, HIATAL HERNIA, MANY BACK SX, PAST AT AGE 81 Mother Family Medical History: Asthma, Hypertension Mother Brother(s) Family Medical History: Cancer General Exam - General Exam Comments Initial Comments: GENERAL: Patient is well-developed and well-nourished. Patient is nontoxic and well- hydrated and is in mild distress. ENT: Neck is soft and supple. No significant lymphadenopathy is noted. Oropharynx is clear. Moist mucous membranes. EYES: The sclera were anicteric and conjunctiva were pink and moist. Extraocular movements were intact and pupils were equal round and reactive to light. Eyelids were unremarkable. PULMONARY: Unlabored respirations. Good breath sounds bilaterally. No audible rales rhonchi or wheezing was noted. CARDIOVASCULAR: There is a regular rate and rhythm without any murmurs gallops or rubs. ABDOMEN: Soft and nontender with normal bowel sounds. SKIN: Skin is clear with no lesions or rashes and otherwise unremarkable. NEUROLOGIC: Patient is alert and oriented x3. Cranial nerves II through XII are grossly intact. Motor and sensory are also intact. Normal speech, volume and content. Symmetrical smile. MUSCULOSKELETAL: Normal extremities with adequate strength and full range of motion. No CVA tenderness LYMPHATICS: No significant lymphadenopathy is noted PSYCHIATRIC: Normal psychiatric evaluation. Limitations: no limitations Course Vital Signs 12/13/21 11:40 Temperature 97.6 F Pulse Rate 121 H Respiratory 18 Rate Blood Pressure 131/72 O2 Sat by Pulse 98 Oximetry Medical Decision Making - Medical Decision Making Computed tomography scan shows no acute abnormality. Patient has an infected urine so I started the patient on 2 g of Rocephin IV. Patient also received Pyridium. - Lab Data Result diagrams: 12/13/21 12:59 12/13/21 12:59 Lab Results 12/13/21 12/13/21 12/13/21 Range/Units 11:45 12:59 12:59 WBC 12.0 H (3.8-10.6) k/uL RBC 4.54 (3.80-5.40) m/uL Hgb 13.7 (11.4-16.0) gm/dL Hct 41.9 (34.0-46.0) % MCV 92.3 (80.0-100.0) fL MCH 30.3 (25.0-35.0) pg MCHC 32.8 (31.0-37.0) g/dL RDW 13.3 (11.5-15.5) % Plt Count 267 (150-450) k/uL MPV 7.6 Neutrophils % 74 % Lymphocytes % 15 % Monocytes % 6 % Eosinophils % 2 % Basophils % 1 % Neutrophils # 8.9 H (1.3-7.7) k/uL Lymphocytes # 1.7 (1.0-4.8) k/uL Monocytes # 0.7 (0-1.0) k/uL Eosinophils # 0.3 (0-0.7) k/uL Basophils # 0.2 (0-0.2) k/uL Sodium 139 (137-145) mmol/L Potassium 4.4 (3.5-5.1) mmol/L Chloride 104 (98-107) mmol/L Carbon Dioxide 24 (22-30) mmol/L Anion Gap 11 mmol/L BUN 16 (7-17) mg/dL Creatinine 0.83 (0.52-1.04) mg/dL Est GFR (CKD-EPI)AfAm 87 (>60 ml/min/1.73 sqM) Est GFR (CKD-EPI)NonAf 75 (>60 ml/min/1.73 sqM) Glucose 93 (74-99) mg/dL Calcium 9.4 (8.4-10.2) mg/dL Total Bilirubin 0.5 (0.2-1.3) mg/dL AST 24 (14-36) U/L ALT 16 (4-34) U/L Alkaline Phosphatase 101 (38-126) U/L Total Protein 8.2 (6.3-8.2) g/dL Albumin 4.8 (3.5-5.0) g/dL Urine Color Dark Red Urine Appearance Turbid H (Clear) Urine pH 6.0 (5.0-8.0) Ur Specific [place] 1.021 (1.001-1.035) Urine Protein 3+ H (Negative) Urine Glucose (UA) Negative (Negative) Urine Ketones Negative (Negative) Urine Blood Large H (Negative) Urine Nitrite Negative (Negative) Urine Bilirubin Negative (Negative) Urine Urobilinogen <2.0 (<2.0) mg/dL Ur Leukocyte Esterase Large H (Negative) Urine RBC >182 H (0-5) /hpf Urine WBC >182 H (0-5) /hpf Ur Squamous Epith Cells 5 H (0-4) /hpf Urine Mucus Few H (None) /hpf Disposition Clinical Impression: Urinary tract infection Disposition: HOME SELF-CARE Condition: Good Instructions (If sedation given, give patient instructions): Urinary Tract Infection in Women (ED) Prescriptions: Sulfamethox-Tmp 800-160Mg [Bactrim DS 800-160 mg] 1 each PO Q12HR #14 tab Is patient prescribed a controlled substance at d/c from ED?: No Referrals: Oleg Galindo MD [Primary Care Provider] - 1-2 days Time of Disposition: 13:52
[2021-12-13 13:03] LABS: Basophils # (A) 0.2 k/uL (0-0.2); Basophils % (A) 1 %; Eosinophils # (A) 0.3 k/uL (0-0.7); Eosinophils % (A) 2 %; HCT 41.9 % (34.0-46.0); HGB 13.7 gm/dL (11.4-16.0); Lymphocytes # (A) 1.7 k/uL (1.0-4.8); Lymphocytes % (A) 15 %; MCH 30.3 pg (25.0-35.0); MCHC 32.8 g/dL (31.0-37.0); MCV 92.3 fL (80.0-100.0); Mean Platelet Volume 7.6; Monocytes # (A) 0.7 k/uL (0-1.0); Monocytes % (A) 6 %; Neutrophils # (A) 8.9 k/uL (1.3-7.7); Neutrophils % (A) 74 %; Platelet Count 267 k/uL (150-450); RBC 4.54 m/uL (3.80-5.40); RDW 13.3 % (11.5-15.5)
[2021-12-13 13:11] LABS: Albumin 4.8 g/dL (3.5-5.0); Calcium 9.4 mg/dL (8.4-10.2); Potassium 4.4 mmol/L (3.5-5.1); Total Bilirubin 0.5 mg/dL (0.2-1.3); Total Protein 8.2 g/dL (6.3-8.2)
[2021-12-13] MEDS ORDERED: cefTRIAXone IN SWFI 1,000 MG/10 ML SYRINGE IVP STA (13:20)
--- NOTE | 2021-12-13 13:37 | CT ---
EXAMINATION TYPE: CT abdomen pelvis wo con CT DLP: 370.1 mGycm, Automated exposure control for dose reduction was used. DATE OF EXAM: 12/13/2021 1:28 PM COMPARISON: CT abdomen pelvis most recent from 10/19/2021 CLINICAL INDICATION:Female, 66 years old with history of Hematuria TECHNIQUE: Standard CT of the abdomen and pelvis without IV or oral contrast. Lack of IV or oral co ntrast limits evaluation of solid and hollow organ viscera. Coronal and sagittal reformats were perfo rmed. FINDINGS: LOWER CHEST: Unremarkable ABDOMEN LIVER: Unremarkable GALLBLADDER AND BILE DUCTS: Unremarkable. PANCREAS: Unremarkable. SPLEEN: Unremarkable. ADRENAL GLANDS: Unremarkable. KIDNEYS AND URETERS: No evidence of hydronephrosis or renal calculus. The ureters are unremarkable. PELVIS BLADDER: Incompletely distended but grossly unremarkable. REPRODUCTIVE: Unremarkable. ABDOMEN & PELVIS STOMACH AND BOWEL: Scattered clonic diverticula are present. No evidence of bowel obstruction. Append ix is normal. PERITONEUM: No evidence of pneumoperitoneum or free fluid. VASCULATURE: Mild atherosclerotic calcifications are present throughout the abdominal aorta and its b ranches. No evidence of aortic aneurysm. MUSCULOSKELETAL: No acute osseous abnormalities. Mild disc degeneration changes are present throughou t the thoracolumbar spine. LYMPH NODES: No gross evidence for lymphadenopathy. SOFT TISSUE/ABDOMINAL WALL: Unremarkable IMPRESSION: 1. No evidence or hydronephrosis, renal calculus or abnormality involving the bladder. Note is made t hat the bladder is suboptimally evaluated given nondistention. 2. Colonic diverticulosis.
[2021-12-13 14:50] VITALS: BP 128/85; PULSE 106; RESP 16
== END 2021-12-13 14:50 | disposition home or self-care (01) ==
LOC: EC 11:09
DX: N39.0 Urinary tract infection, site not specified (principal); E78.5 Hyperlipidemia, unspecified; I10 Essential (primary) hypertension; Z88.0 Allergy status to penicillin; Z87.891 Personal history of nicotine dependence
CPT/HCPCS: 36415; 80053; 85025; 81001; 87086; 74176; 99284; 96374; J0696

== ENCOUNTER → 2022-05-16 | Outpatient (CLI) | payer BC ==
[2022-05-16 10:48] LABS: Basophils # (A) 0.09 X 10*3/uL (0.00-0.10); Basophils % (A) 1.7 %; Eosinophils # (A) 0.25 X 10*3/uL (0.04-0.35); Eosinophils % (A) 4.7 %; HGB 12.9 g/dL (12.0-15.0); Immature Grans, Automated 0.2 %; Lymphocytes # (A) 1.63 X 10*3/uL (0.90-5.00); Lymphocytes % (A) 30.9 %; MCH 29.7 pg (27.0-32.0); MCHC 32.3 g/dL (32.0-37.0); MCV 92.2 fL (80.0-97.0); Mean Platelet Volume 10.2 fL (9.5-12.2); Monocytes % (A) 11.4 %; NRBC Per 100 WBC 0 /100 WBCS (0.0-0.0); Neutrophils # (A) 2.69 X 10*3/uL (1.80-7.70); Neutrophils % (A) 51.1 %; Platelet Count 265 X 10*3/uL (140-440); RBC 4.34 X 10*6/uL (4.10-5.20); RDW 13.7 % (11.5-14.5); WBC 5.27 X 10*3/uL (4.50-10.00)
[2022-05-16 11:11] LABS: ALT 13 U/L (8-44); AST 19 U/L (13-35); African American GFR (CKD) 86.4 (60.0-200.0); Albumin 4.4 g/dL (3.8-4.9); Albumin/Globulin Ratio 1.73 (1.60-3.17); Alkaline Phosphatase 70 U/L (41-126); BUN/Creat Ratio 18.07 Ratio (12.00-20.00); Calcium 9.3 mg/dL (8.7-10.3); Chloride 106 mmol/L (96-109); Chol/HDL Ratio 2.58 Ratio; Globulin 2.5 g/dL (1.6-3.3); Glucose 99 mg/dL (70-110); LDL Cholesterol,Calculated 76.6 mg/dL (0.0-131.0); Non-African American GFR(CKD) 74.5 (60.0-200.0); Potassium 4.8 mmol/L (3.5-5.5); Sodium 141 mmol/L (135-145); Total Protein 6.9 g/dL (6.2-8.2); VLDL Calculation 12.14 mg/dL (5.00-40.00)
== END | disposition home or self-care (01) ==
LOC: LABWHC1 06:59
PROVIDERS: ATTEND Internal Medicine
DX: I10 Essential (primary) hypertension (principal); E78.2 Mixed hyperlipidemia; F32.9 Major depressive disorder, single episode, unspecified; M81.0 Age-related osteoporosis without current pathological fracture
CPT/HCPCS: 36415; 80053; 80061; 82306; 83036; 84439; 84443; 85025

== ENCOUNTER → 2022-05-17 | Outpatient (CLI) | payer BC | END | disposition home or self-care (01) | LOC: LABWHC1 07:13 | PROVIDERS: ATTEND Internal Medicine | DX: I10 Essential (primary) hypertension (principal); M81.0 Age-related osteoporosis without current pathological fracture; F32.A Depression, unspecified; E78.2 Mixed hyperlipidemia | CPT/HCPCS: 36415; 82523 ==

== ENCOUNTER → 2022-11-28 | Outpatient (CLI) | payer MEDICARE, OTHER ==
--- NOTE | 2022-11-28 11:51 | CTL ---
EXAMINATION TYPE: CT Low Dose Lung DATE OF EXAM ORDERED: 11/28/2022 HISTORY: Long-term tobacco use. Lung cancer screening CT DLP: 41.[address] CTDI: 1.30 mGy Automated exposure control for dose reduction was used. SCREENING VISIT: Baseline COMPARISON: None TECHNIQUE: Low dose computed tomography scan was performed through the chest at 1 mm thick sections a nd reconstructed images in multiple planes at 1 mm and [address] DIAGNOSTIC QUALITY: Satisfactory FINDINGS: LUNG NODULES: Present, detailed below: A few scattered small nodules are present. Reference is a 3 x 2 mm peripheral left upper lobe nodule axial image 94. There is a 6 x 4 mm groundg lass nodule right upper lobe axial image 91. There is partially peripherally calcified 1.4 x 1.1 cm r ight middle lobe nodule axial image 167 is favored benign. No greater than 6 mm solid noncalcified pu lmonary nodules. LUNGS: COPD: Severity: None Fibrosis: Severity: Mild biapical Lymph nodes: None Other findings: None RIGHT PLEURAL SPACE: Effusion: None Calcification: None Thickening: None Pneumothorax: None LEFT PLEURAL SPACE: Effusion: None Calcification: None Thickening: None Pneumothorax: None HEART: Heart Size: Normal Coronary Calcification: None Pericardial Effusion: None OTHER FINDINGS: Upper abdomen: None Bony thorax: None Supraclavicular region: None Other: Bilateral subpectoral breast implants are present IMPRESSION: No concerning greater than 6 mm noncalcified pulmonary nodules. Nonspecific partially brigido cified 1.4 x 1.1 cm right lung nodule favored benign. CT LUNG RAD AND CT CHEST RECOMMENDATION: Lung-Rad 3 Probably Benign: 6 month follow-up LDCT. S Modifier (other clinically significant findings): None
== END | disposition home or self-care (01) ==
LOC: RADCTMAIN 08:36
PROVIDERS: ATTEND Internal Medicine
DX: Z12.2 Encounter for screening for malignant neoplasm of respiratory organs (principal); R91.8 Other nonspecific abnormal finding of lung field; Z87.891 Personal history of nicotine dependence
CPT/HCPCS: 71271

== ENCOUNTER → 2023-07-20 | Outpatient (CLI) | payer MEDICARE ==
--- NOTE | 2023-07-20 11:03 | MM ---
Reason for Exam: Hx of breast cancer, mastectomy. Last mammogram was performed 1 year(s) and 9 month(s) ago. Patient History: Menarche at age 18. First Full-Term at age 27. Postmenopausal. Other cancer. Breast cancer, right, age 57. Previous chemotherapy at age 57. 2013, Mastectomy on the Right side. 09/19/2013, Malignant Core Biopsy on the right side. 09/19/2013, Malignant Core Biopsy on the right side. 2013, Chemotherapy. 2013, Implant on the left side. Maternal aunt had breast cancer, age 60. Prior Study Comparison: 06/13/2019 Left Diagnostic Mammogram, [facility]. 10/12/2020 Left Diagnostic Mammogram, [facility]. 11/01/2021 Left MG 3D diag mammo imp w/cad , [facility]. Tissue Density: Left: The breast tissue is heterogeneously dense. This may lower the sensitivity of mammography. Findings: Analyzed By CAD. Retropectoral silicone implant demonstrated. A previous central nodularity on the MLO view is no longer seen. No significant change from prior exams. Overall Assessment: Benign, BI-RAD 2 Management: Screening Mammogram of the left breast in 1 year. . Results were given to the patient verbally at the time of exam. Patient should continue monthly self-breast exams. A clinical breast exam by your physician is recommended on an annual basis. This exam should not preclude additional follow-up of suspicious palpable abnormalities. Electronically signed and approved by: Deon Maurer M.D. Radiologist
--- NOTE | 2023-07-20 17:30 | BD ---
EXAMINATION TYPE: Axial Bone Density DATE OF EXAM: 07/20/2023 CLINICAL HISTORY: 67 years old Female. ICD-10 CODE: M81.0 AGE RELATED OSTEOPOROSIS Height: 5 ft 4 1/2 in Weight: FRAX RISK QUESTIONS: Alcohol (3 or more units per day): no Family History (Parent hip fracture): no Glucocorticoids (More than 3mos): no (Ex: prednisone, prednisolone, methylprednisolone, dexamethasone, and hydrocortisone). History of Fracture in Adulthood: yes Secondary Osteoporosis: 1. Type 1 Diabetes: no 2. Hyperthyroidism: no 3. Menopause before 45: yes 4. Malnutrition: celiac 5. Chronic liver disease: no Rheumatoid Arthritis: no Current Tobacco Use: former RISK FACTORS HISTORY OF: Surgery to Spine/Hip(right/left)/Wrist (right/left): no MEDICATIONS: Thyroid Medications: none Osteoporosis Medications:has been on prolia x 2 years not been on for one year because of insurance [employer] EXAM MEASUREMENTS: Bone mineral densitometry was performed using the Respi System. Bone mineral density as measured about the Lumbar spine is: ----- L1-L4(G/cm2): 0.661 T Score Values are as follows: ----- L1: -3.5 ----- L2: -4.9 ----- L3: -4.0 ----- L4: -4.9 ----- L1-L4: -4.3 Z Score Values are as follows: ----- L1: -1.6 ----- L2: -3.1 ----- L3: -2.1 ----- L4: -3.0 ----- L1-L4: -2.4 Bone mineral density has: increased 18.2 % since study of: 2020 Bone mineral density about the R hip (g/cm2): 0.650 Bone mineral density about the L hip (g/cm2): 0.615 T Score values are as follows: -----R Neck: -2.8 -----L Neck: -3.0 -----R Total: -3.2 -----L Total: -3.3 Z Score values are as follows: -----R Neck: -1.1 -----L Neck: -1.4 -----R Total: -1.8 -----L Total: -1.9 Bone mineral density has: increased 5.3 % since study of: 2020 FRAX%s: The graph provided illustrates a 25.0 % chance for a major osteoporotic fx and a 8.1 % chance for the hips probability for fx in 10 years time. IMPRESSION: Osteoporosis (T Score less than -2.5). There is increased fracture risk and therapy is usually indicated based on age. Re-Screen 1-2 years. NOTE: T-SCORE=SD OF THE YOUNG ADULT MEAN.
== END | disposition home or self-care (01) ==
LOC: RADMAMWWP 10:26
PROVIDERS: ATTEND Internal Medicine
DX: R92.8 Other abnormal and inconclusive findings on diagnostic imaging of breast (principal); C50.912 Malignant neoplasm of unspecified site of left female breast; R92.332 Mammographic heterogeneous density, left breast; M81.0 Age-related osteoporosis without current pathological fracture; M85.89 Other specified disorders of bone density and structure, multiple sites; Z78.0 Asymptomatic menopausal state
CPT/HCPCS: 77080; 77065; G0279; 77061

== ENCOUNTER → 2023-08-21 | Outpatient (CLI) | payer MEDICARE ==
--- NOTE | 2023-08-21 11:11 | CA ---
Exercise Stress Test Report Name: Yanet Salmon Exam Date: 08/21/2023 09:03 Exam Location: [place] Stress Ht (in): 64 Wt (lb): 127 BSA: 1.61 Ordering Phys: Oleg Galindo MD Referring Phys: Oleg Galindo MD Technologist: Carol Jefferson Age: 67 Gender: F : 1955 Procedure CPT: Indications: I10 HYPERTENSION ICD-10 Codes: Patient History: Medications: see list Meds past 24 hrs: Pretest Chest Pain: STRESS TEST [place] Protocol Exercise Duration (min:sec): 06:[address] Depressions (mm): Angina Score: Lopez Score: Resting HR (bpm): 98 Peak HR (bpm): 159 Resting BP (mmHg): 115 / 82 Peak BP (mmHg): 154 / 67 MPHR: 155 Target HR: 132 % MPHR: 103 METS: 7.1 Total Dose: Peak Dose: Atropine: Double Product: 01734 BP Response: Stress Termination: Reached target heart rate Stress Symptoms: No Symptoms Stress Summary: ECG ANALYSIS Resting ECG: Sinus rhythm, normal axis, Stress ECG: No significant ST-T wave changes diagnostic for ischemia by ST segment analysis. There were no arrhythmias or ectopic beats during the stress test CONCLUSIONS Fair excess tolerance for age achieving 7.1 METS Nonischemic ECG response to treadmill exercise Normal hemodynamic response to treadmill exercise Overall normal treadmill stress test Dr Sudeep Luis (Electronically Signed) Final Date: 21 August 2023 11:11
== END | disposition home or self-care (01) ==
LOC: RADNMMAIN 08:35
PROVIDERS: ATTEND Internal Medicine
DX: I10 Essential (primary) hypertension (principal)
CPT/HCPCS: 93017

== ENCOUNTER → 2023-12-27 | Outpatient (CLI) | payer MEDICARE ==
--- NOTE | 2023-12-27 08:54 | XR ---
EXAMINATION TYPE: XR cervical spine w flex/ext DATE OF EXAM: 12/27/2023 COMPARISON: NONE HISTORY: Pain TECHNIQUE: Four views are submitted. FINDINGS: The odontoid is intact. There are no compression deformities. The prevertebral soft tissue structur es are within normal limits. Surgical clips overlying the right axilla. There is a grade 1 anterolis thesis C3-C4 4. Severe degenerative disc disease C4-5, C5-6, C6-7 and C7-T1 with posterior spondylosi s. Suspect foraminal encroachment at these levels. There is slight increase in the anterolisthesis and flexion views of the C3-C4 and there is mild ante rior listhesis on flexion views at C2-C3 and C4-C5 which could be related to ligamentous laxity. This corrects on extension views with retrolisthesis noted at C3-C4. IMPRESSION: 1. Multilevel severe degenerative disc disease with suspected foraminal encroachment as discussed abo christy..
--- NOTE | 2023-12-27 10:06 | CTL ---
EXAMINATION TYPE: CT Low Dose Lung DATE OF EXAM ORDERED: 12/27/2023 HISTORY: . Low Dose CT Lung Screening CT DLP: 62.[address] CTDI: 1.7 mGy IV CONTRAST USED: None. SCREENING VISIT: Second COMPARISON: 11/28/2022 and CTA chest 03/17/2014 TECHNIQUE: Low dose computed tomography scan was performed through the chest at 1 millimeter thick se ctions and reconstructed images in the coronal plane at [address] DIAGNOSTIC QUALITY: Satisfactory FINDINGS: LUNG NODULES: Stable 1.2 cm pulmonary nodule central calcification dating back to 2013. No new pulmon lino nodules greater than 5 mm. LUNGS: COPD: Severity: Mild Fibrosis: Severity:None Lymph nodes: None Other findings: None RIGHT PLEURAL SPACE: Effusion: None Calcification: None Thickening: None Pneumothorax: None LEFT PLEURAL SPACE: Effusion: None Calcification: None Thickening: None Pneumothorax: None HEART: Heart Size: Mildly enlarged Coronary calcification: Mild Pericardial effusion: None OTHER FINDINGS: Upper abdomen: No significant abnormality Bony thorax: Degenerative changes Supraclavicular region: No significant abnormalityOther: No significant abnormalityI IMPRESSION: 1. Stable partially calcified nodule right upper lobe dating back to 2013. FOLLOW UP CT CHEST RECOMMENDATION: Follow-up screening in one year CT LUNG RAD: LUNG RAD CATEGORY 2 benign
== END | disposition home or self-care (01) ==
LOC: RADCTMAIN 08:23
PROVIDERS: ATTEND Internal Medicine
DX: Z12.2 Encounter for screening for malignant neoplasm of respiratory organs (principal); M47.812 Spondylosis without myelopathy or radiculopathy, cervical region; M50.321 Other cervical disc degeneration at C4-C5 level; R91.1 Solitary pulmonary nodule; Z87.891 Personal history of nicotine dependence
CPT/HCPCS: 71271; 72052

== ENCOUNTER → 2024-02-12 | Outpatient (CLI) | payer MEDICARE ==
--- NOTE | 2024-02-12 16:58 | MR ---
EXAMINATION TYPE: MR cervical spine wo/w con DATE OF EXAM: 02/12/2024 COMPARISON: None HISTORY: Dizziness, stiff neck. CONTRAST: Performed utilizing 6 mL intravenous Gadavist gadolinium contrast. TECHNIQUE: Multiplanar multiecho imaging on a 3.0 Priya magnet is performed through the cervical spin e. FINDINGS: The craniovertebral junction is normal. Vertebral body alignment has a mild cervical kypho sis centered at C4. C7-T1: No focal disc herniation or significant disc bulge is evident. No spinal canal stenosis or n eural foraminal stenosis is present. C6-7: No focal disc herniation evident. Minimal disc bulge may be present with anterior thecal sac co ntact. Uncovertebral joint hypertrophy is present on the left with moderate to severe foraminal narro wing. C5-6: No focal disc herniation or significant disc bulge is evident. There is mild loss of disc heigh t present. Uncovertebral joint hypertrophy is moderate bilateral foraminal narrowing. C4-5: Posterior endplate spurring is evident with associated mild disc bulge. This has mild anterior thecal sac contact. This may have cord contact without cord deformity. Findings could be related to a cute disc herniation. No spinal canal stenosis or neural foraminal stenosis is present. C3-4: No focal disc herniation or significant disc bulge is evident. No spinal canal stenosis or ramana ral foraminal stenosis is present. C2-3: No focal disc herniation or significant disc bulge is evident. No spinal canal stenosis or ramana ral foraminal stenosis is present. There appears to be some posterior longitudinal ligament enhancement posterior to the C4-5 level whic h would suggest the disc disc bulging may be acute. This does not appear typical for epidural absces s. No additional enhancement is evident. IMPRESSION: 1. There appears to be osteophyte disc complex at the C4-5 level. This has mild anterior thecal sac c ontact and possible cord contact without cord deformity. With some mild enhancement along the posteri or longitudinal ligament region, the disc bulging may be acute. Correlate with the patient's pain. 2. Moderate to Severe left foraminal stenosis C6-7 from uncovertebral joint hypertrophy. Correlate wi th radicular symptoms.
== END | disposition home or self-care (01) ==
LOC: RADMRIMAIN 15:30
PROVIDERS: ATTEND Internal Medicine
DX: M47.812 Spondylosis without myelopathy or radiculopathy, cervical region
CPT/HCPCS: 72156

== ENCOUNTER → 2024-09-05 | Outpatient (CLI) | payer MEDICARE ==
--- NOTE | 2024-09-05 08:57 | MM ---
Reason for Exam: Additional evaluation requested from prior study. Last mammogram was performed 1 year(s) and 2 month(s) ago. Patient History: Menarche at age 18. First Full-Term at age 27. Postmenopausal. Other cancer. Breast cancer, right, age 57. Previous chemotherapy at age 57. 2013, Mastectomy on the Right side. 09/19/2013, Malignant Core Biopsy on the right side. 09/19/2013, Malignant Core Biopsy on the right side. 2013, Chemotherapy. 2013, Implant on the left side. Maternal aunt had breast cancer, age 60. Prior Study Comparison: 10/12/2020 Left Diagnostic Mammogram, [facility]. 11/01/2021 Left MG 3D diag mammo imp w/cad LT, [facility]. 07/20/2023 Left MG 3D diag mammo imp w/cad LT, [facility]. Tissue Density: Left: The breasts are heterogeneously dense, which may obscure small masses. Findings: Analyzed By CAD. There is no evidence for mass or distortion. Retropectoral implant remains intact. No suspicious microcalcifications. Overall Assessment: Benign, BI-RAD 2 Management: Diagnostic Mammogram of the left breast in 1 year. . Results were given to the patient verbally at the time of exam. Patient should continue monthly self-breast exams. A clinical breast exam by your physician is recommended on an annual basis. This exam should not preclude additional follow-up of suspicious palpable abnormalities. Note on Emma scores and lifetime risk: 1. A Emma score greater than 3% is considered moderate risk. If this is the case, consider specialist referral to assess eligibility for a risk reducing agent. 2. If overall lifetime risk for the development of breast cancer is 20% or higher, the patient may qualify for future screening with alternating mammogram and breast MRI. [facility], , 09/05/2024 8:40 AM. Electronically signed and approved by: Jeffrey Koehler M.D. Radiologis
== END | disposition home or self-care (01) ==
LOC: RADMAMWWP 08:22
PROVIDERS: ATTEND Internal Medicine
DX: R92.8 Other abnormal and inconclusive findings on diagnostic imaging of breast (principal); R92.332 Mammographic heterogeneous density, left breast; Z80.3 Family history of malignant neoplasm of breast; Z78.0 Asymptomatic menopausal state; Z90.11 Acquired absence of right breast and nipple; Z98.82 Breast implant status
CPT/HCPCS: 77061; 77065

== ENCOUNTER → 2024-10-14 | Outpatient (CLI) | payer MEDICARE ==
--- NOTE | 2024-10-14 14:12 | US ---
EXAMINATION TYPE: US carotid duplex BILAT DATE OF EXAM: 10/14/2024 COMPARISON: NONE CLINICAL INDICATION: Female, 68 years old with history of I65.23 CAROTID STENOSIS; chest pain Additional History: .... TECHNIQUE: Grayscale, color Doppler and spectral Doppler evaluation of the bilateral carotid systems and vertebral arteries. Indirect Doppler criteria was utilized. FINDINGS: EXAM MEASUREMENTS: RIGHT: Peak Systolic Velocity (PSV) cm/sec ----- Right CCA: 110 ----- Right ICA: 108 ----- Right ECA: 95.5 ICA/CCA ratio: 0.98 RIGHT: End Diastole cm/sec ----- Right CCA: 35.1 ----- Right ICA: 39.0 ----- Right ECA: 13.0 LEFT: Peak Systolic Velocity (PSV) cm/sec ----- Left CCA: 115 ----- Left ICA: 136 ----- Left ECA: 122 ICA/CCA ratio: 1.18 LEFT: End Diastole cm/sec ----- Left CCA: 40.3 ----- Left ICA: 50.5 ----- Left ECA: 35.2 VERTEBRALS (direction of flow): Right Vertebral: Antegrade Left Vertebral: Antegrade Rhythm: Normal SALESPERSON SHOES NOTES: Mild plaque bilateral bifurcations. Slightly increased velocities distal left ICA Color Doppler imaging shows patency with blood flow throughout the carotid artery. Spectral waveforms are within normal limits. IMPRESSION: Right: Less than 50% stenosis of the carotid bifurcation. Left: Less than 50% stenosis of the carotid bifurcation. Criteria for Assigning % of Stenosis / Diameter reduction (Estimation based on the indirect measurements of the internal carotid artery velocities (ICA PSV). 1. Normal (no stenosis)=ICA PSV < 180 cm/s: ratio < 2.0: ICA EDV<40 cm/s. 2. Less than 50% stenosis=ICA PSV < 180 cm/s: ratio < 2.0: ICA EDV<40 cm/s. 3. 50 to 69% stenosis=ICA PSV of 180 to 230 cm/s: ration 2.0 ? 4.0: ICA EDV 40-100 cm/s. PSV 125-180 cm/sec and ICA/CCA PSV Ratio ? 2.0 is also consistent with 50-69% stenosis 4. Greater than 70% stenosis to near occlusion= ICA PSV > 230 cm/s: ratio > 4.0: ICA EDV > 100 cm/s. 5. Near occlusion= ICA PSV velocities may be low or undetectable: variable ratio and ICA EDV. 6. Total occlusion=unable to detect flow. [facility], , 10/14/2024 2:10 PM
--- NOTE | 2024-10-15 13:16 | CA ---
Transthoracic Echo Report Name: Yanet Salmon Age: 68 Gender: F : 1955 Exam Date: 10/14/2024 12:52 Exam Location: [facility] Ht (in): 65 Wt (lb): 128 Ordering Physician: Oleg Galindo MD Attending/Referring Phys: Foundry Finisher Sahara Miranda RDCS Procedure CPT: Indications: I34.0 NONRHEUMATIC MITRAL (VALVE) INSUFFICIENCY Cardiac Hx: Technical Quality: Good Contrast 1: Total Dose (mL): Contrast 2: Total Dose (mL): MEASUREMENTS (Male / Female) Normal Values 2D ECHO LV Diastolic Diameter PLAX 3.9 cm 4.2 - 5.9 / 3.9 - 5.3 cm LV Systolic Diameter PLAX 3.3 cm IVS Diastolic Thickness 1.0 cm 0.6 - 1.0 / 0.6 - 0.9 cm LVPW Diastolic Thickness 0.7 cm 0.6 - 1.0 / 0.6 - 0.9 cm LV Relative Wall Thickness 0.4 LVOT Diameter 1.7 cm LV Diastolic Volume MOD BP 44.7 cm??? 67 - 155 / 56 - 104 cm??? LV Systolic Volume MOD BP 17.9 cm??? 22 - 58 / 19 - 49 cm??? LV Ejection Fraction MOD BP 60.0 % >= 55 % LV Cardiac Index MOD BP 1477.2 cm???/min???m??? LV Diastolic Volume MOD 4C 43.1 cm??? LV Systolic Volume MOD 4C 15.8 cm??? LV Ejection Fraction MOD 4C 63.3 % LV Cardiac Index MOD 4C 1504.0 cm???/min???m??? LV Diastolic Length 4C 6.6 cm LV Systolic Length 4C 5.0 cm LV Diastolic Volume MOD 2C 46.4 cm??? LV Systolic Volume MOD 2C 19.6 cm??? LV Ejection Fraction MOD 2C 57.7 % LV Cardiac Index MOD 2C 1474.7 cm???/min???m??? LV Diastolic Length 2C 6.5 cm LV Systolic Length 2C 5.2 cm LA Volume 20.4 cm??? 18 - 58 / 22 - 52 cm??? LA Volume Index 12.5 cm???/m??? 16 - 28 cm???/m??? Ascending Aorta Diameter 2.8 cm DOPPLER AV Peak Velocity 87.5 cm/s AV Peak Gradient 3.1 mmHg AV Mean Velocity 69.4 cm/s AV Mean Gradient 2.0 mmHg AV Velocity Time Integral 15.5 cm LVOT Peak Velocity 75.0 cm/s LVOT Peak Gradient 2.3 mmHg LVOT Velocity Time Integral 11.8 cm LVOT Stroke Volume 26.0 cm??? LVOT Stroke Volume Index 15.9 ml/m??? LVOT Cardiac Index 1434.1 cm???/min???m??? AV Area Cont Eq vti 1.7 cm??? AV Area Cont Eq pk 1.9 cm??? MV Area PHT 11.1 cm??? Mitral E Point Velocity 32.4 cm/s Mitral A Point Velocity 52.5 cm/s Mitral E to A Ratio 0.6 MV Deceleration Time 68.4 ms PV Peak Velocity 82.7 cm/s PV Peak Gradient 2.7 mmHg FINDINGS Left Ventricle Left ventricular ejection fraction is estimated at 55-60 %. Left ventricular cavity size normal. Left ventricular wall thickness normal. No obvious regional wall motion abnormalities. Right Ventricle Normal right ventricular size and function. Unable to estimate the right ventricular systolic pressure. Right Atrium Normal right atrial size. Left Atrium Normal left atrial size. Mitral Valve Structurally normal mitral valve. No evidence for mitral valve prolapse. No mitral stenosis. Trace mitral regurgitation. Aortic Valve Trileaflet aortic valve. Aortic valve sclerosis. No aortic valve stenosis or regurgitation. Tricuspid Valve Structurally normal tricuspid valve. No tricuspid stenosis. Trace tricuspid regurgitation. Pulmonic Valve Structurally normal pulmonic valve. No pulmonic stenosis. Mild pulmonic regurgitation. Pericardium No pericardial effusion. Aorta Normal size aortic root and proximal ascending aorta. CONCLUSIONS Normal LV size and systolic function. Minimal mitral and tricuspid regurgitation. Right-sided pressures are not well quantified. No pericardial effusion Previewed by: Dr. Christian Vazquez MD (Electronically Signed) Final Date: 15 Oct 2024 13:15
== END | disposition home or self-care (01) ==
LOC: RADECHMAIN 12:46
PROVIDERS: ATTEND Internal Medicine
DX: I65.23 Occlusion and stenosis of bilateral carotid arteries (principal); I08.1 Rheumatic disorders of both mitral and tricuspid valves
CPT/HCPCS: 93306; 93880

== ENCOUNTER → 2024-11-26 | Outpatient (CLI) | payer MEDICARE ==
--- NOTE | 2024-11-26 10:35 | XR ---
EXAMINATION TYPE: XR wrist complete BILATERAL DATE OF EXAM: 11/26/2024 9:29 AM COMPARISON: Left hand 12/08/2019 CLINICAL INDICATION: Female, 68 years old with history of M25.531 M25.532; PHH, pain TECHNIQUE: 4 views each side FINDINGS: On the left, there is healed fracture deformity fifth metacarpal neck. Moderate soft tissue swelling at the wrist especially along the ulnar dorsal aspect. Metacarpal and distal radial ulnar joint as we ll as mid carpal compartment appear intact. Mild degenerative change first CMC joint. No acute fractu re, subluxation, dislocation is seen. On the right, there is mild ulnar and dorsal soft tissue swelling. Radiocarpal and distal radioulnar joint as well as the mid carpal compartment appear intact. Mild degenerative change at the first CMC joint. No acute fracture, subluxation, dislocation. IMPRESSION: 1. Left: Moderate soft tissue swelling especially along the ulnar dorsal aspect. Old healed boxer's f racture deformity. Mild degenerative change base of the thumb. 2. Right: Mild soft tissue swelling especially ulnar aspect. Mild first CMC joint OA. No acute osseou s abnormality seen. [facility], Workstation: [facility], 11/26/2024 10:33 AM
== END | disposition home or self-care (01) ==
LOC: RADXRMAIN 09:10
PROVIDERS: ATTEND Internal Medicine
DX: M19.032 Primary osteoarthritis, left wrist (principal); M18.0 Bilateral primary osteoarthritis of first carpometacarpal joints

== ENCOUNTER → 2024-12-30 | Outpatient (CLI) | payer MEDICARE ==
--- NOTE | 2024-12-30 10:47 | CTL ---
EXAMINATION TYPE: CT Low Dose Lung DATE OF EXAM ORDERED: 12/30/2024 COMPARISON: 12/27/2023 CLINICAL INDICATION: Female, 69 years old with history of Z12.2 LUNG CA SCR Z87.891 FORMER SMOKER; PH H, FORMER SMOKER, QUIT 11 YEARS AGO. SMOKED 1 PPD X35 YEARS, Lung cancer screening, History of Smokin g/tobacco use. TECHNIQUE: Low dose computed tomography scan was performed through the chest at 1 mm thick sections a nd reconstructed images in multiple planes at 1 mm and [address] DLP: 57.[address] CTDI: 1.7 mGy Automated exposure control for dose reduction was used. CT DIAGNOSTIC QUALITY: Satisfactory FINDINGS: LUNG NODULES: Stable 1.2 cm pulmonary nodule central calcification dating back to 2013. There is a groundglass nodule in the right upper lobe measuring 5 mm stable. Reference image 90, seri es 4. There is a 3 mm micronodule in the left upper lobe stable image 92, series 4 Subpleural nodularity in the posterior lung bases bilaterally the largest measuring 7 mm appears incr eased in size compared to prior exam. LUNGS: COPD: Severity: Mild Fibrosis: Severity:None Lymph nodes: Metallic densities in the right axilla could be related to calcification or surgical cli ps. No pathologic-sized lymphadenopathy. Shotty subcentimeter lymph nodes incidentally noted Other findings: None RIGHT PLEURAL SPACE: Effusion: None Calcification: None Thickening: None Pneumothorax: None LEFT PLEURAL SPACE: Effusion: None Calcification: None Thickening: None Pneumothorax: None HEART: Heart Size: Mildly enlarged Coronary calcification: Mild Pericardial effusion: None OTHER FINDINGS: Upper abdomen: Small hiatal hernia. No thickening of the adrenal glands is nonspecific could be assoc iated with benign hyperplasia or adenoma. Bony thorax: Degenerative changes generalized demineralization. Chronic appearing mild endplate compr ession deformity midthoracic spine. Supraclavicular region: No significant abnormality Other: Breast implant surgery. IMPRESSION: 1. Stable partially calcified nodule right upper lobe dating back to 2013. 2. Interval increase in size of a right lower lobe subpleural nodule now measuring 7 mm. Recommend 6 month follow-up CT scan. Stable changes of COPD. CT LUNG RAD: LUNG RAD CATEGORY 3-probably benign. Six-month follow-up CT scan recommended. [facility], , 12/30/2024 10:44 AM
== END | disposition home or self-care (01) ==
LOC: RADCTMAIN 10:08
PROVIDERS: ATTEND Internal Medicine
DX: Z12.2 Encounter for screening for malignant neoplasm of respiratory organs (principal); R91.8 Other nonspecific abnormal finding of lung field; J44.9 Chronic obstructive pulmonary disease, unspecified; Z87.891 Personal history of nicotine dependence
CPT/HCPCS: 71271